=== PATIENT | female | born 1960 | race Caucasian/White ===

== ENCOUNTER 2018-05-06 14:08 | Emergency (ER) | payer BC ==
[2018-05-06] MEDS ORDERED: LIDOCAINE 1% INJ 10MG/ML (20 ML MDV) SQ ONE (14:31)
[2018-05-06] MEDS ORDERED: DIPH,PERTUS(ACELL)TETVAC-LF 0.5 ML VIAL IM ONE (14:31)
[2018-05-06 14:35] VITALS: BP 179/77; PULSE 85; RESP 16; TEMP 98
--- NOTE | 2018-05-06 14:40 | ED ---
General Adult HPI - General Stated complaint: fish hook in finger Time Seen by Provider: 05/06/18 14:29 Source: patient, RN notes reviewed Mode of arrival: ambulatory Limitations: no limitations - History of Present Illness Initial comments: This a 57-year-old female presented emergency Department chief complaint of fishhook in her hand. Patient states that she is fishing, it slipped into her finger. She is unsure when her last tetanus was. Patient states that it's in her left hand middle finger. Patient states that it is painful this time and has no other complaints. - Related Data Home Medications Medication Instructions Recorded Confirmed Ibuprofen [Advil] 200 mg PO Q8HR PRN 05/06/18 05/06/18 Previous Rx's Medication Instructions Recorded Cephalexin [Keflex] 500 mg PO Q8HR #21 cap 05/06/18 Allergies Allergy/AdvReac Type Severity Reaction Status Date / Time No Known Allergies Allergy Verified 05/06/18 14:37 Review of Systems ROS Statement: Those systems with pertinent positive or pertinent negative responses have been documented in the HPI. ROS Other: All systems not noted in ROS Statement are negative. Past Medical History Additional Past Medical History / Comment(s): hemorrhoids History of Any Multi-Drug Resistant Organisms: None Reported Additional Past Surgical History / Comment(s): tubal ligation Past Psychological History: No Psychological Hx Reported Smoking Status: Current every day smoker Past Alcohol Use History: None Reported Past Drug Use History: None Reported General Exam Limitations: no limitations General appearance: alert, in no apparent distress Respiratory exam: Present: normal lung sounds bilaterally. Absent: respiratory distress, wheezes, rales, rhonchi, stridor Cardiovascular Exam: Present: regular rate, normal rhythm, normal heart sounds. Absent: systolic murmur, diastolic murmur, rubs, gallop, clicks Extremities exam: Present: other (Left hand third digit there is a fishhook noted embedded in the middle phalanx region) Course Vital Signs 05/06/18 14:30 Temperature 98 F Pulse Rate 85 Respiratory 16 Rate Blood Pressure 179/77 O2 Sat by Pulse 96 Oximetry Procedures - Procedures Initial comment: Foreign body soft tissue removal: 3 mL of lidocaine without epinephrine were injected around the site of the hook in her left hand third digit. Patient had complete relief of the pain and hook was backed out using pliers with no complications. The wound was cleaned bacitracin applied. Medical Decision Making - Medical Decision Making 57-year-old female presented emergency department for fishhook in her left hand third digit. This was removed with no complications bacitracin applied. Patient was discharged at [facility] for 7 days. Wound care was discussed. X-ray was obtained. Tetanus was updated. Disposition Clinical Impression: Marlin injury to finger, Foreign body in soft tissue Disposition: HOME SELF-CARE Condition: Stable Instructions: Soft Tissue Foreign Body (ED) Additional Instructions: Please return to the Emergency Department if symptoms worsen or any other concerns. Prescriptions: Cephalexin [Keflex] 500 mg PO Q8HR #21 cap Is patient prescribed a controlled substance at d/c from ED?: No Referrals: None,Stated [Primary Care Provider] - 1-2 days Time of Disposition: 15:08
--- NOTE | 2018-05-06 15:08 | XR ---
EXAMINATION TYPE: XR finger LT DATE OF EXAM: 05/06/2018 COMPARISON: NONE HISTORY: Pain TECHNIQUE: Three views are submitted. FINDINGS: The osseous structures are intact. The joint spaces are preserved and there is no acute fracture or dislocation. There is a foreign body metallic clip overlying the distal phalanx third digit. IMPRESSION: 1. No definite acute fracture or dislocation if symptoms persist, follow-up study in 7 to 10 days wo uld be suggested. 2. Findings compatible with foreign body overlying the palmar surface soft tissues adjacent the dista l phalanx third digit.
== END 2018-05-06 15:21 | disposition home or self-care (01) ==
LOC: EC 14:08
DX: S60.453A Superficial foreign body of left middle finger, initial encounter (principal); F17.200 Nicotine dependence, unspecified, uncomplicated; Z23 Encounter for immunization; W45.8XXA Other foreign body or object entering through skin, initial encounter; Y93.89 Activity, other specified
CPT/HCPCS: 73140; 90715; 99283; 90471; J2001

== ENCOUNTER → 2019-07-28 | Outpatient (CLI) | payer BC ==
--- NOTE | 2019-07-28 14:57 | CT ---
EXAMINATION TYPE: CT chest w con DATE OF EXAM: 07/28/2019 COMPARISON: None HISTORY: Abnormal lung field, chest x-ray in office and patient was told she has a "bubble under medi astinal area" CT DLP: 531 mGycm, Automated exposure control for dose reduction was used. CONTRAST: Performed injected with 100 mL of Isovue 300. TECHNIQUE: Axial images were obtained at 5 mm thick sections. Reconstructed images are reviewed on [email or web address] computer in the coronal plane. FINDINGS: Portion of the thyroid visualized is normal. No suspicious lung nodules or focal infiltrates are present. No enlarged mediastinal or hilar adenopathy is evident. The ascending aorta diameter at the level o f the main pulmonary artery is 3.1 cm. The main pulmonary artery diameter at the bifurcation is 1.[address] sections are obtained through the upper abdomen. Abdomen is essentially unremarkable. No f ree air is evident. IMPRESSIONS: 1. Normal Chest CT.
== END | disposition home or self-care (01) ==
LOC: RADCTMAIN 09:13
PROVIDERS: ATTEND Internal Medicine Rheumatology
DX: R91.8 Other nonspecific abnormal finding of lung field (principal)
CPT/HCPCS: 71260; Q9967

== ENCOUNTER 2019-09-27 09:09 | Inpatient (IN) | payer BC ==
[2019-09-27] MEDS ORDERED: ASPIRIN 81 MG PO STA (09:20)
--- NOTE | 2019-09-27 09:42 | ED ---
General Adult HPI - General Chief complaint: Shortness of Breath Stated complaint: Dyspnea Time Seen by Provider: 09/27/19 09:17 Source: patient, RN notes reviewed Mode of arrival: ambulatory Limitations: no limitations - History of Present Illness Initial comments: Patient is a pleasant [age]-year-old female presenting to the emergency Department with shortness of breath. Patient has occasional mild cough with yellow sputum. Patient has felt short of breath somewhat yesterday more today. Patient is a smoker. No history of similar symptoms previously. Patient did have some burning in her chest. Patient states symptoms of burning the chest h ave resolved and dyspnea has significant improved following nebulizer treatment by EMS. Patient does have some nasal congestion as well. No fevers. No back pain. No leg pain or leg swelling. - Related Data Home Medications Medication Instructions Recorded Confirmed Fluticasone Nasal [place] [Flonase 1 spr EA NOSTRIL DAILY 09/27/19 09/27/19 Nasal [place]] Hydroxychloroquine Sulfate 200 mg PO BID 09/27/19 09/27/19 [Plaquenil] Pseudoephedrine HCl [Sudafed 240 mg PO DAILY PRN 09/27/19 09/27/19 24-Hour] Allergies Allergy/AdvReac Type Severity Reaction Status Date / Time No Known Allergies Allergy Verified 09/27/19 10:33 Review of Systems ROS Statement: Those systems with pertinent positive or pertinent negative responses have been documented in the HPI. ROS Other: All systems not noted in ROS Statement are negative. Constitutional: Denies: fever Eyes: Denies: eye pain ENT: Denies: ear pain Respiratory: Reports: cough, dyspnea Cardiovascular: Reports: chest pain Endocrine: Denies: fatigue Gastrointestinal: Denies: vomiting Genitourinary: Denies: dysuria Musculoskeletal: Denies: back pain Skin: Denies: rash Neurological: Denies: weakness Past Medical History Past Medical History: Rheumatoid Arthritis (RA) Additional Past Medical History / Comment(s): hemorrhoids History of Any Multi-Drug Resistant Organisms: None Reported Past Surgical History: Tonsillectomy Additional Past Surgical History / Comment(s): tubal ligation Past Psychological History: No Psychological Hx Reported Smoking Status: Current every day smoker Past Alcohol Use History: None Reported Past Drug Use History: None Reported General Exam Limitations: no limitations General appearance: alert, in no apparent distress Head exam: Present: normocephalic Eye exam: Present: normal appearance, PERRL ENT exam: Present: normal oropharynx Neck exam: Present: normal inspection Respiratory exam: Present: normal lung sounds bilaterally. Absent: chest wall tenderness Cardiovascular Exam: Present: regular rate, normal rhythm Expanded Peripheral pulses: 2+: Radial (R), Radial (L), Dorsalis Pedis (R), Dorsalis Pedis (L) GI/Abdominal exam: Present: soft. Absent: tenderness Extremities exam: Present: normal inspection. Absent: pedal edema, calf tender ness Neurological exam: Present: alert Psychiatric exam: Present: normal affect, normal mood Skin exam: Present: normal color Course Vital Signs 09/27/19 09:16 Temperature 97.9 F Pulse Rate 107 H Respiratory 18 Rate Blood Pressure 175/119 O2 Sat by Pulse 96 Oximetry EKG Findings - EKG Comments: EKG Findings:: Sinus tachycardia 102. IN 162. QRS 78. QT 362. QTC 471. Normal axis. Atrial enlargement. No acute ST change. Medical Decision Making - Medical Decision Making Patient reevaluated and updated. Case was discussed in detail with Dr. Polanco, who will admit coming Dr. tracey, who admits for Dr. Schmidt - Lab Data Result diagrams: 09/27/19 10:06 09/27/19 10:06 Lab Results 09/27/19 09/27/19 09/27/19 Range/Units 10:06 10:06 10:06 WBC 11.6 H (3.8-10.6) k/uL RBC 5.19 (3.80-5.40) m/uL Hgb 15.6 (11.4-16.0) gm/dL Hct 46.6 H (34.0-46.0) % MCV 89.8 (80.0-100.0) fL MCH 30.1 (25.0-35.0) pg MCHC 33.5 (31.0-37.0) g/dL RDW 12.6 (11.5-15.5) % Plt Count 201 (150-450) k/uL Neutrophils % 88 % Lymphocytes % 7 % Monocytes % 3 % Eosinophils % 2 % Basophils % 1 % Neutrophils # 10.2 H (1.3-7.7) k/uL Lymphocytes # 0.8 L (1.0-4.8) k/uL Monocytes # 0.3 (0-1.0) k/uL Eosinophils # 0.2 (0-0.7) k/uL Basophils # 0.1 (0-0.2) k/uL PT 10.0 (9.0-12.0) sec INR 0.9 (<1.2) APTT 22.9 (22.0-30.0) sec D-Dimer 1.52 H (<0.60) mg/L FEU Sodium 144 (137-145) mmol/L Potassium 3.2 L (3.5-5.1) mmol/L Chloride 105 (98-107) mmol/L Carbon Dioxide 28 (22-30) mmol/L Anion Gap 11 mmol/L BUN 13 (7-17) mg/dL Creatinine 0.84 (0.52-1.04) mg/dL Est GFR (CKD-EPI)AfAm 87 (>60 ml/min/1.73 sqM) Est GFR (CKD-EPI)NonAf 75 (>60 ml/min/1.73 sqM) Glucose 119 H (74-99) mg/dL Calcium 10.0 (8.4-10.2) mg/dL Magnesium 2.0 (1.6-2.3) mg/dL Total Bilirubin 0.6 (0.2-1.3) mg/dL AST 27 (14-36) U/L ALT 31 (9-52) U/L Alkaline Phosphatase 122 (38-126) U/L Troponin I (0.000-0.034) ng/mL Total Protein 8.1 (6.3-8.2) g/dL Albumin 4.4 (3.5-5.0) g/dL Amylase 807 H* (30-110) U/L Lipase 13511 H (23-300) U/L 09/27/19 Range/Units 10:06 WBC (3.8-10.6) k/uL RBC (3.80-5.40) m/uL Hgb (11.4-16.0) gm/dL Hct (34.0-46.0) % MCV (80.0-100.0) fL MCH (25.0-35.0) pg MCHC (31.0-37.0) g/dL RDW (11.5-15.5) % Plt Count (150-450) k/uL Neutrophils % % Lymphocytes % % Monocytes % % Eosinophils % % Basophils % % Neutrophils # (1.3-7.7) k/uL Lymphocytes # (1.0-4.8) k/uL Monocytes # (0-1.0) k/uL Eosinophils # (0-0.7) k/uL Basophils # (0-0.2) k/uL PT (9.0-12.0) sec INR (<1.2) APTT (22.0-30.0) sec D-Dimer (<0.60) mg/L FEU Sodium (137-145) mmol/L Potassium (3.5-5.1) mmol/L Chloride (98-107) mmol/L Carbon Dioxide (22-30) mmol/L Anion Gap mmol/L BUN (7-17) mg/dL Creatinine (0.52-1.04) mg/dL Est GFR (CKD-EPI)AfAm (>60 ml/min/1.73 sqM) Est GFR (CKD-EPI)NonAf (>60 ml/min/1.73 sqM) Glucose (74-99) mg/dL Calcium (8.4-10.2) mg/dL Magnesium (1.6-2.3) mg/dL Total Bilirubin (0.2-1.3) mg/dL AST (14-36) U/L ALT (9-52) U/L Alkaline Phosphatase (38-126) U/L Troponin I <0.012 (0.000-0.034) ng/mL Total Protein (6.3-8.2) g/dL Albumin (3.5-5.0) g/dL Amylase (30-110) U/L Lipase (23-300) U/L - Radiology Data Radiology results: report reviewed (The of the chest shows no acute process), image reviewed (X-ray shows no acute process) Disposition Clinical Impression: Pancreatitis Disposition: ADMITTED IP TO THIS HOSP Is patient prescribed a controlled substance at d/c from ED?: No Referrals: Miguel Schmidt MD [Primary Care Provider] - 1-2 days Decision Time: 12:28
--- NOTE | 2019-09-27 10:11 | XR ---
EXAMINATION TYPE: XR chest 2V DATE OF EXAM: 09/27/2019 COMPARISON: NONE HISTORY: Congestion, shortness of breath, chest pain TECHNIQUE: Frontal and lateral views of the chest are obtained. FINDINGS: There is no focal air space opacity, pleural effusion, or pneumothorax seen. The cardiac silhouette size is within normal limits. The osseous structures are intact. IMPRESSION: No acute cardiopulmonary process.
[2019-09-27 10:30] LABS: Basophils # (A) 0.1 k/uL (0-0.2); Basophils % (A) 1 %; Eosinophils # (A) 0.2 k/uL (0-0.7); Eosinophils % (A) 2 %; HCT 46.6 % (34.0-46.0); HGB 15.6 gm/dL (11.4-16.0); Lymphocytes # (A) 0.8 k/uL (1.0-4.8); Lymphocytes % (A) 7 %; MCH 30.1 pg (25.0-35.0); MCHC 33.5 g/dL (31.0-37.0); MCV 89.8 fL (80.0-100.0); Mean Platelet Volume 6.4; Monocytes # (A) 0.3 k/uL (0-1.0); Monocytes % (A) 3 %; Neutrophils # (A) 10.2 k/uL (1.3-7.7); Neutrophils % (A) 88 %; Platelet Count 201 k/uL (150-450); RBC 5.19 m/uL (3.80-5.40); RDW 12.6 % (11.5-15.5); WBC 11.6 k/uL (3.8-10.6)
[2019-09-27 10:38] LABS: Albumin 4.4 g/dL (3.5-5.0); Potassium 3.2 mmol/L (3.5-5.1); Total Bilirubin 0.6 mg/dL (0.2-1.3); Total Protein 8.1 g/dL (6.3-8.2)
[2019-09-27 10:43] LABS: INR 0.9 (<1.2); Partial Thromboplastin Time 22.9 sec (22.0-30.0)
[2019-09-27 10:47] LABS: D-Dimer 1.52 mg/L FEU (<0.60)
[2019-09-27] MEDS ORDERED: NALOXONE 0.4 MG/ML 1 ML VIAL IV PRN (12:28)
[2019-09-27] MEDS ORDERED: ONDANSETRON 4 MG/2 ML VIAL IVP PRN (12:28)
[2019-09-27] MEDS ORDERED: HYDROmorphone 1 MG/ML 1 ML SYRINGE IVP PRN (12:28)
[2019-09-27] MEDS ORDERED: SODIUM CHLORIDE 0.9% 1,000 ML IV STA (12:39)
[2019-09-27] MEDS: PANTOPRAZOLE 40 MG/10 ML VIAL IV SCH (13:56)
[2019-09-27] MEDS ORDERED: DOCUSATE 100 MG CAP PO PRN (15:06)
[2019-09-27] MEDS ORDERED: LOPERAMIDE 2 MG CAP PO PRN (15:06)
[2019-09-27] MEDS ORDERED: ACETAMINOPHEN TAB 325 MG TAB PO PRN (15:06)
--- NOTE | 2019-09-27 15:11 | US ---
EXAMINATION TYPE: US gallbladder DATE OF EXAM: 09/27/2019 COMPARISON: NONE CLINICAL HISTORY: Pancreatitis. Vomiting EXAM MEASUREMENTS: Liver Length: 13.6 cm Gallbladder Wall: .2 cm CBD: .5 cm Right Kidney: 10.4 x 3.5 x 4.1 cm Pancreas: Normal head and neck. Pancreatic duct is within normal limits measuring 2 to 3 mm. Tail is obscured by bowel gas. Liver: Within normal limits. Gallbladder: No cholelithiasis or wall thickening. 5 mm polyp noted. Evidence for sonographic Lara's sign: No CBD: Nondilated. Right Kidney: Within normal limits, no hydronephrosis. IMPRESSION: No evidence for cholelithiasis.
--- NOTE | 2019-09-27 15:16 | CT ---
EXAMINATION TYPE: CT angio chest DATE OF EXAM: 09/27/2019 2:28 PM COMPARISON: CT chest without contrast 07/28/2019 HISTORY: Elevated d-dimer CT DLP: 269.3 mGycm Automated exposure control for dose reduction was used. CONTRAST: CTA scan of the thorax is performed with IV Contrast, patient injected with 100 mL of Isovue 370, pul monary embolism protocol. MIP images are created and reviewed. FINDINGS: No pulmonary arterial filling defect. No pulmonary arterial enlargement. Normal course and caliber of the thoracic aorta. The heart is not enlarged. No pericardial effusion. No mediastinal adenopathy. No focal airspace consolidation. Lingular atelectasis noted. No osseous destructive lesion. Incidental L1 vertebral body hemangioma IMPRESSION: No pulmonary embolism.
[2019-09-27 15:17] VITALS: BMI 26.5
[2019-09-27] MEDS ORDERED: ALBUTEROL NEBULIZED 2.5 MG/3 ML INHALATION PRN (16:01)
--- NOTE | 2019-09-27 16:03 | P.HPIM ---
History of Present Illness H&P Date: 09/27/19 Chief Complaint: Pancreatitis, chest pain 59-year-old female with PMH of rheumatoid arthritis presents the ED for chest pain and nausea and vomiting. Patient states that she woke up this morning feeling short of breath. She was able to make it to work but soon experienced 4 episodes of nonbilious nonbloody vomiting. Along with the vomiting, patient reported chest pain, described as burning in nature. These constellation of symptoms prompted her to go to the ED. Patient reports that her breathing has gotten better since receiving a breathing treatment. Patient reports smoking 1- 1/2 packs of cigarettes daily since age of 13. Patient reports that she was diagnosed with rheumatoid arthritis in June. She is also reported rhinorrhea and nasal congestion that has been ongoing for the past few days. She denies any alcohol use. She denies any abdominal pain. She denies any changes in urination or bowel habits. She denies any headache, lower 70 edema, current nausea or vomiting, fever or chills, cough, chest pain, palpitations, dizziness, numbness/weakness/tingling of the extremities. In the ED, vital signs are stable except for elevated BP of 177/82 and tachycardia with heart rate of 103. CBC showed leukocytosis of 11.6. D-dimer was elevated at 1.52. CMP showed potassium of 3.2, glucose of 119. Troponin was less than 0.012, EKG showing sinus tachycardia and biatrial enlargement. Amylase was elevated at 807. Lipase was elevated at 14,302. D-dimer was elevated, CTA chest ruled out PE. Gallbladder ultrasound was negative for cholelithiasis. Patient is admitted for pancreatitis and chest pain, rule out acute coronary syndrome. Past Medical History Past Medical History: Rheumatoid Arthritis (RA) Additional Past Medical History / Comment(s): hemorrhoids History of Any Multi-Drug Resistant Organisms: None Reported Past Surgical History: Tonsillectomy Additional Past Surgical History / Comment(s): tubal ligation Past Psychological History: No Psychological Hx Reported Smoking Status: Current every day smoker Past Alcohol Use History: None Reported Past Drug Use History: None Reported - Past Family History Father Family Medical History: No Reported History Medications and Allergies Home Medications Medication Instructions Recorded Confirmed Type Fluticasone Nasal [place] [Flonase 1 spr EA NOSTRIL DAILY 09/27/19 09/27/19 History Nasal [place]] Hydroxychloroquine Sulfate 200 mg PO BID 09/27/19 09/27/19 History [Plaquenil] Pseudoephedrine HCl [Sudafed 240 mg PO DAILY PRN 09/27/19 09/27/19 History 24-Hour] Allergies Allergy/AdvReac Type Severity Reaction Status Date / Time No Known Allergies Allergy Verified 09/27/19 10:33 Physical Exam Vitals: Vital Signs Temp Pulse Resp BP Pulse Ox 09/27/19 13:56 72 18 163/82 98 09/27/19 12:24 62 18 177/82 09/27/19 09:16 97.9 F 107 H 18 175/119 96 Intake and Output 09/27/19 09/27/19 09/27/19 06:59 14:59 22:59 Other: # Voids 0 Weight 67.9 kg General: [non toxic], [no distress], [appears at stated age] Derm: [warm], [dry] Head: [atraumatic], [normocephalic], [symmetric] Eyes: [EOMI], [no lid lag], [anicteric sclera] Mouth: [no lip lesion], [mucus membranes moist] Cardiovascular: [S1S2 reg], [tachycardia], [positive DP pulse bilateral], Lungs: [Decreased breath sounds bilateral], [no rhonchi, no rales] , [no accessory muscle use] Abdominal: [soft], [ nontender to palpation], [no guarding], [no appreciable organomegaly] Ext: [no gross muscle atrophy], [no edema], [no contractures] Neuro: [ CN II-XI grossly intact], [no focal neuro deficits] Psych: [Alert], [oriented], [appropriate affect] Results CBC & Chem 7: 09/27/19 10:06 09/27/19 10:06 Labs: Abnormal Lab Results - Last 24 Hours (Table) 09/27/19 09/27/19 09/27/19 Range/Units 10:06 10:06 10:06 WBC 11.6 H (3.8-10.6) k/uL Hct 46.6 H (34.0-46.0) % Neutrophils # 10.2 H (1.3-7.7) k/uL Lymphocytes # 0.8 L (1.0-4.8) k/uL D-Dimer 1.52 H (<0.60) mg/L FEU Potassium 3.2 L (3.5-5.1) mmol/L Glucose 119 H (74-99) mg/dL Amylase 807 H* (30-110) U/L Lipase 29995 H (23-300) U/L Thrombosis Risk Factor Assmnt - Choose All That Apply Other Risk Factors: Yes Each Risk Factor Represents 2 Points: Age 61-74 years Thrombosis Risk Factor Assessment Total Risk Factor Score: 2 Thrombosis Risk Factor Assessment Level: Low Risk Assessment and Plan Assessment: Assessment and plan Acute pancreatitis Chest pain with elevated d-dimer Shortness of breath Leukocytosis likely due to viral URI Hypokalemia Rheumatoid arthritis Amylase 807, lipase 14,302. LFTs are within normal limits. Unknown cause. Plans: Clear liquid diet and advance as tolerated. Continue normal saline at 100 mL per hour. Tylenol for Dilaudid as needed for pain. Zofran as needed for nausea or vomiting. Start Protonix 40 mg IV daily. Follow gallbladder ultrasound. Repeat lipase tomorrow morning. Follow GI consultation. Troponin less than 0.012 with EKG showing biatrial enlargement and sinus tachycardia. Elevated d-dimer, CTA chest ruled out PE. Chest x-ray negative. Likely related to pancreatitis. Plans: Trend troponin/EKG to rule out ACS. Aspirin given in the ED. Telemetry monitoring. Possibly COPD due to smoking history. Plans: Albuterol neb as needed for shortness of breath and wheezing. Leukocytosis of 11.6. Patient has signs of URI. Chest x-ray negative. Plans: We'll repeat CBC in the morning. Potassium 3.2. Likely due to vomiting. Plans: Replace via protocol. Plans: Continue hydroxychloroquine. DVT prophylaxis: [SCD] Discussed with: [Patient] Anticipated discharge: [1-2 days] Anticipated discharge place: [Home] A total of [45] minutes was spent on the care of this complex patient more than 50% of the time was spent in counseling and care coordination. Patient names her son Ravi decision-maker in the case that she can't make decisions for herself. Patient reiterates wanting to remain no code.
[2019-09-27] MEDS: HYDROXYCHLOROQUINE SULFATE 200 MG TAB PO SCH (20:07)
[2019-09-28] MEDS: HYDROXYCHLOROQUINE SULFATE 200 MG TAB PO SCH (08:28)
[2019-09-28] MEDS: PANTOPRAZOLE 40 MG/10 ML VIAL IV SCH (08:30)
[2019-09-28 08:52] LABS: HCT 39.3 % (34.0-46.0); HGB 12.8 gm/dL (11.4-16.0); MCH 29.4 pg (25.0-35.0); MCHC 32.6 g/dL (31.0-37.0); MCV 90.2 fL (80.0-100.0); Mean Platelet Volume 7.1; Platelet Count 230 k/uL (150-450); RBC 4.35 m/uL (3.80-5.40); RDW 12.8 % (11.5-15.5); WBC 17.7 k/uL (3.8-10.6)
[2019-09-28 09:08] LABS: ALT 25 U/L (9-52); AST 23 U/L (14-36); African American GFR (CKD) >90 (>60 ml/min/1.73 sqM); Albumin 3.6 g/dL (3.5-5.0); Alkaline Phosphatase 85 U/L (38-126); Anion Gap 7 mmol/L; Blood Urea Nitrogen 13 mg/dL (7-17); Calcium 9.3 mg/dL (8.4-10.2); Carbon Dioxide 24 mmol/L (22-30); Chloride 110 mmol/L (98-107); Cholesterol 178 mg/dL (<200); Glucose 82 mg/dL (74-99); HDL Cholesterol 65 mg/dL (40-60); LDL Cholesterol,Calculated 99 mg/dL (0-99); Non-African American GFR(CKD) >90 (>60 ml/min/1.73 sqM); Potassium 3.9 mmol/L (3.5-5.1); Sodium 141 mmol/L (137-145); Total Bilirubin 0.4 mg/dL (0.2-1.3); Total Protein 6.6 g/dL (6.3-8.2); Triglycerides 70 mg/dL (<150)
--- NOTE | 2019-09-28 09:27 | P.DS ---
Providers Date of admission: 09/27/19 12:28 Expected date of discharge: 09/28/19 Attending physician: Margaux Gonzales MD Consults: 09/27/19 12:29 Consult Physician Urgent Consulting Provider: Anayeli Buitrago Consult Reason/Comments: pancreatitis Do you want consulting provider notified?: Yes Primary care physician: [facility] Course: 59-year-old female with PMH of rheumatoid arthritis presents the ED for chest pain and nausea and vomiting. Patient states that she woke up this morning feeling short of breath. She was able to make it to work but soon experienced 4 episodes of nonbilious nonbloody vomiting. Along with the vomiting, patient reported chest pain, described as burning in nature. These constellation of symptoms prompted her to go to the ED. Patient reports that her breathing has gotten better since receiving a breathing treatment. Patient reports smoking 1- 1/2 packs of cigarettes daily since age of 13. Patient reports that she was di agnosed with rheumatoid arthritis in June. She is also reported rhinorrhea and nasal congestion that has been ongoing for the past few days. She denies any alcohol use. She denies any abdominal pain. She denies any changes in urination or bowel habits. She denies any headache, lower 70 edema, current nausea or vomiting, fever or chills, cough, chest pain, palpitations, dizziness, numbness/weakness/tingling of the extremities. In the ED, vital signs are stable except for elevated BP of 177/82 and tachycardia with heart rate of 103. CBC showed leukocytosis of 11.6. D-dimer was elevated at 1.52. CMP showed potassium of 3.2, glucose of 119. Troponin was less than 0.012, EKG showing sinus tachycardia and biatrial enlargement. Amylase was elevated at 807. Lipase was elevated at 14,302. D-dimer was elevated, CTA chest ruled out PE. Gallbladder ultrasound was negative for cholelithiasis. Patient is admitted for pancreatitis and chest pain, rule out acute coronary syndrome. Her symptoms were thought to be secondary to pancreatitis. Her LFT was within normal limits. The costophrenic pancreatitis was unknown. She was started on clear liquid diet and advanced as tolerated. She was given IV hydration. Pain was controlled with Tylenol and Dilaudid. She was given Zofran for nausea or vomiting. She was started on Protonix. Gallbladder ultrasound was performed and was negative. GI consult was consulted and followed the patient throughout her hospitalization. With regard to her chest pain which is likely related to her episode of vomiting plan was to rule out ACS. Troponin was less than 0.0123 with EKG showing biatrial enlargement and sinus tachycardia. PE was ruled out via CTA chest. Her shortness of breath was likely due to her long standing history of smoking. She probably has underlying COPD. She was given albuterol neb as needed for shortness of breath and wheezing. She was to be discharged home with an albuterol inhaler. Patient had leukocytosis of 11.6 which trended up to 17.7. This was thought to be secondary to viral URI as she had some nasal congestion. Chest x-ray was negative. Patient was seen and examined prior to discharge. No acute events overnight. Patient denies any abdominal pain. No nausea or vomiting. No fever or chills. She denies any chest pain, shortness of breath or palpitations. General: [non toxic], [no distress], [appears at stated age] Derm: [warm], [dry] Head: [atraumatic], [normocephalic], [symmetric] Eyes: [EOMI], [no lid lag], [anicteric sclera] Mouth: [no lip lesion], [mucus membranes moist] Cardiovascular: [S1S2 reg], [tachycardia], [positive DP pulse bilateral], Lungs: [Decreased breath sounds bilateral], [no rhonchi, no rales] , [no accessory muscle use] Abdominal: [soft], [ nontender to palpation], [no guarding], [no appreciable organomegaly] Ext: [no gross muscle atrophy], [no edema], [no contractures] Neuro: [no focal neuro deficits] Psych: [Alert], [oriented], [appropriate affect] Assessment and plan Acute pancreatitis Chest pain with elevated d-dimer Shortness of breath Leukocytosis likely due to viral URI Rheumatoid arthritis Amylase 807, lipase 14,302. LFTs are within normal limits. Unknown cause. Gallbladder ultrasound negative. Plans: Clear liquid diet and advance as tolerated. Continue normal saline at 100 mL per hour. Tylenol for Dilaudid as needed for pain. Zofran as needed for nausea or vomiting. Start Protonix 40 mg IV daily. Repeat lipase tomorrow morning. Follow GI consultation. Troponin less than 0.012 3 with EKG showing biatrial enlargement and sinus tachycardia. Elevated d-dimer, CTA chest ruled out PE. Chest x-ray negative. Likely related to pancreatitis. Plans: ACS ruled out. Aspirin given in the ED. Possibly COPD due to smoking history. Plans: Albuterol neb as needed for shortness of breath and wheezing. Will discharge home with albuterol inhaler. Leukocytosis of 11.6-17.7. Patient has signs of URI. Also reactive due to pancreatitis. Chest x-ray negative. Plans: Repeat CBC in 3 days. Plans: Continue hydroxychloroquine. [Waiting on repeat lipase. Possible DC home today if cleared by GI and lipase downtrending. Patient is asymptomatic. Follow-up PCP in 3 days. Follow-up GI within 1 week. Repeat CBC to be followed up with PCP.] Pertinent Studies: Chest x-ray, gallbladder ultrasound, chest CTA Patient Condition at Discharge: Stable Plan - Discharge Summary New Discharge Prescriptions: New Pantoprazole Sodium [Protonix] 40 mg PO DAILY #30 tablet. Albuterol Inhaler [Ventolin Hfa Inhaler] 1 - 2 puff INHALATION RT-Q6H PRN #1 inhaler PRN Reason: Shortness Of Breath Continue Hydroxychloroquine Sulfate [Plaquenil] 200 mg PO BID Fluticasone Nasal Anna [Flonase Nasal Anna] 1 spr EA NOSTRIL DAILY Pseudoephedrine HCl [Sudafed 24-Hour] 240 mg PO DAILY PRN PRN Reason: Cold Symptoms Discharge Medication List Fluticasone Nasal Anna [Flonase Nasal Anna] 1 spr EA NOSTRIL DAILY 09/27/19 [History] Hydroxychloroquine Sulfate [Plaquenil] 200 mg PO BID 09/27/19 [History] Pseudoephedrine HCl [Sudafed 24-Hour] 240 mg PO DAILY PRN 09/27/19 [History] Albuterol Inhaler [Ventolin Hfa Inhaler] 1 - 2 puff INHALATION RT-Q6H PRN #1 inhaler 09/28/19 [Rx] Pantoprazole Sodium [Protonix] 40 mg PO DAILY #30 tablet. 09/28/19 [Rx] Follow up Appointment(s)/Referral(s): Miguel Schmidt MD [Primary Care Provider] - 1-2 days Anayeli Buitrago MD [STAFF PHYSICIAN] - 1 Week Ambulatory/Diagnostic Orders: Lipase [LAB.AMB] Time Frame: 3 Days, Location: None Selected Activity/Diet/Wound Care/Special Instructions: Diet: Low-fat Follow-up PCP within 3 days. Follow-up care within 1 week. Repeat lipase within 3 days. Follow-up results with PCP. Discharge Disposition: HOME SELF-CARE
[2019-09-28 12:04] VITALS: PULSE 90; RESP 17; TEMP 97.8
[2019-09-28] MEDS ORDERED: HYDROCHLOROTHIAZIDE 25 MG TAB PO SCH (14:30)
[2019-09-28] MEDS ORDERED: amLODIPine 10 MG TAB PO SCH (14:30)
[2019-09-28 15:37] VITALS: BP 164/99
--- NOTE | 2019-09-28 16:43 | CONS ---
CONSULTATION DATE OF SERVICE: 09/28/2019 The patient is a 59-year-old pleasant white female admitted to the hospital with severe chest pain associated with nausea and vomiting that started yesterday evening. She initially for the last 2 days has been having some sinus issues and was not feeling well. Yesterday she went to work and she had several episodes of nausea and vomiting and some chest pain, came into the emergency room and she was noted to have elevated amylase and lipase consistent with acute pancreatitis. Patient never had any attacks of pancreatitis in the past. She denies any alcohol use. She did have ultrasound of the gallbladder done that showed no evidence of gallstones. She has no family history of pancreatitis. She was diagnosed with rheumatoid arthritis and was started on Plaquenil about 2 months ago. This morning, she is feeling much better. No further episodes of chest pain. No further episodes of nausea, vomiting requesting for a diet. PAST MEDICAL HISTORY: Rheumatoid arthritis. PAST SURGICAL HISTORY: Tubal ligation and tonsillectomy. MEDICATIONS: At home Plaquenil, Flonase, Sudafed. SOCIAL HISTORY: No history of smoking. No alcohol use. ALLERGIES: None. FAMILY HISTORY: Unremarkable. REVIEW OF SYSTEMS: CARDIOPULMONARY: No chest pain, shortness of breath. no dysuria or hematuria. MUSCULOSKELETAL: Unremarkable. SKIN unremarkable. ENDOCRINE unremarkable. PSYCHIATRIC unremarkable. NEUROLOGY unremarkable. ENT/vision unremarkable. CONSTITUTIONAL: No recent weight loss. No fevers, chills or night sweats. PHYSICAL EXAMINATION: She appears comfortable. No apparent distress. Vital signs stable. Blood pressure is 132/77, pulse rate 101, temperature 97.6. HEENT examination unremarkable. Conjunctivae pink. Sclerae anicteric. Oral cavity no lesions. NECK: No JVD or lymph node enlargement. CHEST: Clear to auscultation. HEART: Regular rate and rhythm. ABDOMEN: Soft. Mild tenderness in the epigastric area. Bowel sounds are positive. No organomegaly. EXTREMITIES: No pedal edema. SKIN: No rashes. NEUROLOGIC: Alert and oriented x3. No focal deficits. LABS: From yesterday WBC 11.6, hemoglobin 15.6, platelets normal. Basic metabolic panel is within normal limits. Amylase was 807, lipase was 14,302. This morning surprisingly the lipase is 164. IMPRESSION: This is a patient who presents to hospital with some chest pain, nausea, vomiting that started yesterday and was noted to have elevated amylase and lipase consistent with acute pancreatitis. No history of alcohol abuse. Ultrasound of the abdomen did not show any evidence of gallstones. Clinically, she has significant improvement and in fact, this morning her symptoms have almost completely resolved and surprisingly her lipase is also normal at 164. RECOMMENDATIONS: 1. Start on clear liquid diet and advance as tolerated. 2. Antiemetics if needed. 3. We will obtain fasting serum triglycerides and serum TAMMI. 4. If her symptoms improve, she can be discharged home today and tomorrow with outpatient followup in 2 weeks. Thank you for this consultation. MMODL / IJN: [id number] /
[2019-09-28] MEDS ORDERED: CARVEDILOL 6.25 MG TAB PO SCH (17:30)
[2019-09-29] MEDS ORDERED: PANTOPRAZOLE 40 MG TABLET PO SCH (07:30)
== END 2019-09-28 17:07 | disposition home or self-care (01) | DRG 440 ==
LOC: EC 09:09 → 3NMEDONC 12:28
PROVIDERS: ADMIT Family Medicine; ATTEND Family Medicine
DX: K85.90 Acute pancreatitis without necrosis or infection, unspecified (principal); E87.6 Hypokalemia; J06.9 Acute upper respiratory infection, unspecified; R07.9 Chest pain, unspecified; M06.9 Rheumatoid arthritis, unspecified; K64.9 Unspecified hemorrhoids; J44.9 Chronic obstructive pulmonary disease, unspecified; F17.218 Nicotine dependence, cigarettes, with other nicotine-induced disorders; Z79.899 Other long term (current) drug therapy; Z98.890 Other specified postprocedural states; Z98.51 Tubal ligation status
CPT/HCPCS: 36415; 71046; 71275; 76705; 80053; 80061; 82150; 83690; 83735; 84484; 85025; 85027; 85379; 85610; 85730; 93005; 94640; 94760; 96361; 96374; 99285

== ENCOUNTER 2020-06-06 12:32 | Inpatient (IN) | payer BC ==
[2020-06-06] MEDS ORDERED: IPRATROPIUM-ALBUTEROL 3 ML NEB INHALATION STA ×2 (12:56→14:38)
[2020-06-06] MEDS ORDERED: methylPREDNISolone SOD SUCCI 125 MG/2 ML VIAL IV STA (12:56)
--- NOTE | 2020-06-06 13:02 | ED ---
SOB HPI - General Chief Complaint: Shortness of Breath Stated Complaint: shortness of breath Time Seen by Provider: 06/06/20 12:40 Source: patient, RN notes reviewed Mode of arrival: wheelchair Limitations: no limitations - History of Present Illness Initial Comments: This is a 59-year-old female with a history of COPD who is still a smoker who presents with complaints of shortness of breath cough with yellow phlegm some rhinorrhea but no overt fevers chills sweats no nausea no vomiting. No loss of smell or taste. He states this started basically yesterday. She also states she's been sneezing a lot. She does demonstrate nasal congestion she states. She does have inhalers at home the apparently were not helping. She was seen at [facility] prior to coming here chest x-ray from that facility was negative for evidence of pneumonia. MD Complaint: shortness of breath, cough - Related Data Home Medications Medication Instructions Recorded Confirmed Hydroxychloroquine Sulfate 200 mg PO BID 09/27/19 06/06/20 [Plaquenil] Albuterol Inhaler (Mhu) [Ventolin 2 puff INHALATION RT-QID PRN 06/06/20 06/06/20 Hfa Inhaler (Mhu)] Allergies Allergy/AdvReac Type Severity Reaction Status Date / Time No Known Allergies Allergy Verified 06/06/20 14:09 Review of Systems ROS Statement: Those systems with pertinent positive or pertinent negative responses have been documented in the HPI. ROS Other: All systems not noted in ROS Statement are negative. Past Medical History Past Medical History: Rheumatoid Arthritis (RA) Additional Past Medical History / Comment(s): hemorrhoids History of Any Multi-Drug Resistant Organisms: None Reported Past Surgical History: Tonsillectomy Additional Past Surgical History / Comment(s): tubal ligation Past Psychological History: No Psychological Hx Reported Smoking Status: Current every day smoker Past Alcohol Use History: None Reported Past Drug Use History: None Reported - Past Family History Father Family Medical History: No Reported History General Exam - General Exam Comments Initial Comments: This is a well-developed well-nourished awake alert oriented 3 female Limitations: no limitations General appearance: alert, in no apparent distress Head exam: Present: atraumatic, normocephalic, normal inspection Eye exam: Present: normal appearance, PERRL, EOMI. Absent: scleral icterus, conjunctival injection, periorbital swelling ENT exam: Present: mucous membranes dry Neck exam: Present: normal inspection, full ROM. Absent: tenderness, meningismus, lymphadenopathy Respiratory exam: Present: wheezes, decreased breath sounds. Absent: respiratory distress, rales, rhonchi, stridor Cardiovascular Exam: Present: normal rhythm, tachycardia, normal heart sounds. Absent: systolic murmur, diastolic murmur, rubs, gallop, clicks GI/Abdominal exam: Present: soft, normal bowel sounds. Absent: distended, tenderness, guarding, rebound, rigid Extremities exam: Present: normal inspection, full ROM, normal capillary refill. Absent: tenderness, pedal edema, joint swelling, calf tenderness Back exam: Present: normal inspection Neurological exam: Present: alert, oriented X3, CN II-XII intact Psychiatric exam: Present: normal affect, normal mood Skin exam: Present: warm, dry, intact, normal color. Absent: rash Course Vital Signs 06/06/20 06/06/20 06/06/20 12:35 13:15 13:23 Temperature 98.7 F Pulse Rate 111 H 98 107 H Respiratory 22 Rate Blood Pressure 141/76 O2 Sat by Pulse 94 L Oximetry 06/06/20 06/06/20 13:31 14:00 Temperature Pulse Rate 102 H 92 Respiratory 24 24 Rate Blood Pressure 137/81 137/81 O2 Sat by Pulse 95 95 Oximetry - Reevaluation(s) Reevaluation #1: 06/06/20 14:10 Reevaluation after initial treatment the patient states she's feeling much impro junior however her lung sounds are still markedly diminished with wheezing bilaterally. Reevaluation #2: 06/06/20 14:38 Reevaluation patient she still is dyspneic with markedly diminished breath sounds and wheezing. Medical Decision Making - Medical Decision Making Patient is feeling initial treatment and will be admitted I discuss this with her also Dr. Chau. Some testing is still pending. - Lab Data Result diagrams: 06/06/20 13:08 06/06/20 13:08 Lab Results 06/06/20 06/06/20 06/06/20 Range/Units 13:08 13:08 13:08 WBC 14.7 H (3.8-10.6) k/uL RBC 5.50 H (3.80-5.40) m/uL Hgb 16.0 (11.4-16.0) gm/dL Hct 49.2 H (34.0-46.0) % MCV 89.5 (80.0-100.0) fL MCH 29.1 (25.0-35.0) pg MCHC 32.6 (31.0-37.0) g/dL RDW 12.6 (11.5-15.5) % Plt Count 160 (150-450) k/uL Neutrophils % 87 % Lymphocytes % 5 % Monocytes % 4 % Eosinophils % 2 % Basophils % 1 % Neutrophils # 12.8 H (1.3-7.7) k/uL Lymphocytes # 0.8 L (1.0-4.8) k/uL Monocytes # 0.6 (0-1.0) k/uL Eosinophils # 0.4 (0-0.7) k/uL Basophils # 0.1 (0-0.2) k/uL PT 10.1 (9.0-12.0) sec INR 1.0 (<1.2) APTT 23.9 (22.0-30.0) sec D-Dimer (<0.60) mg/L FEU Sodium 137 (137-145) mmol/L Potassium 4.5 (3.5-5.1) mmol/L Chloride 103 (98-107) mmol/L Carbon Dioxide 23 (22-30) mmol/L Anion Gap 11 mmol/L BUN 13 (7-17) mg/dL Creatinine 0.95 (0.52-1.04) mg/dL Est GFR (CKD-EPI)AfAm 75 (>60 ml/min/1.73 sqM) Est GFR (CKD-EPI)NonAf 65 (>60 ml/min/1.73 sqM) Glucose 96 (74-99) mg/dL Plasma Lactic Acid Uzair (0.7-2.0) mmol/L Calcium 10.2 (8.4-10.2) mg/dL Magnesium 2.3 (1.6-2.3) mg/dL Total Bilirubin 1.0 (0.2-1.3) mg/dL AST 33 (14-36) U/L ALT 18 (4-34) U/L Alkaline Phosphatase 110 (38-126) U/L Lactate Dehydrogenase 912 H (313-618) U/L Creatine Kinase 57 (30-135) U/L Troponin I (0.000-0.034) ng/mL C-Reactive Protein 70.6 H (<10.0) mg/L NT-Pro-B Natriuret Pep pg/mL Total Protein 8.2 (6.3-8.2) g/dL Albumin 4.9 (3.5-5.0) g/dL 06/06/20 06/06/20 06/06/20 Range/Units 13:08 13:08 13:08 WBC (3.8-10.6) k/uL RBC (3.80-5.40) m/uL Hgb (11.4-16.0) gm/dL Hct (34.0-46.0) % MCV (80.0-100.0) fL MCH (25.0-35.0) pg MCHC (31.0-37.0) g/dL RDW (11.5-15.5) % Plt Count (150-450) k/uL Neutrophils % % Lymphocytes % % Monocytes % % Eosinophils % % Basophils % % Neutrophils # (1.3-7.7) k/uL Lymphocytes # (1.0-4.8) k/uL Monocytes # (0-1.0) k/uL Eosinophils # (0-0.7) k/uL Basophils # (0-0.2) k/uL PT (9.0-12.0) sec INR (<1.2) APTT (22.0-30.0) sec D-Dimer (<0.60) mg/L FEU Sodium (137-145) mmol/L Potassium (3.5-5.1) mmol/L Chloride (98-107) mmol/L Carbon Dioxide (22-30) mmol/L Anion Gap mmol/L BUN (7-17) mg/dL Creatinine (0.52-1.04) mg/dL Est GFR (CKD-EPI)AfAm (>60 ml/min/1.73 sqM) Est GFR (CKD-EPI)NonAf (>60 ml/min/1.73 sqM) Glucose (74-99) mg/dL Plasma Lactic Acid Uzair 1.3 (0.7-2.0) mmol/L Calcium (8.4-10.2) mg/dL Magnesium (1.6-2.3) mg/dL Total Bilirubin (0.2-1.3) mg/dL AST (14-36) U/L ALT (4-34) U/L Alkaline Phosphatase (38-126) U/L Lactate Dehydrogenase (313-618) U/L Creatine Kinase (30-135) U/L Troponin I <0.012 (0.000-0.034) ng/mL C-Reactive Protein (<10.0) mg/L NT-Pro-B Natriuret Pep 174 pg/mL Total Protein (6.3-8.2) g/dL Albumin (3.5-5.0) g/dL 06/06/20 Range/Units 13:08 WBC (3.8-10.6) k/uL RBC (3.80-5.40) m/uL Hgb (11.4-16.0) gm/dL Hct (34.0-46.0) % MCV (80.0-100.0) fL MCH (25.0-35.0) pg MCHC (31.0-37.0) g/dL RDW (11.5-15.5) % Plt Count (150-450) k/uL Neutrophils % % Lymphocytes % % Monocytes % % Eosinophils % % Basophils % % Neutrophils # (1.3-7.7) k/uL Lymphocytes # (1.0-4.8) k/uL Monocytes # (0-1.0) k/uL Eosinophils # (0-0.7) k/uL Basophils # (0-0.2) k/uL PT (9.0-12.0) sec INR (<1.2) APTT (22.0-30.0) sec D-Dimer 0.51 (<0.60) mg/L FEU Sodium (137-145) mmol/L Potassium (3.5-5.1) mmol/L Chloride (98-107) mmol/L Carbon Dioxide (22-30) mmol/L Anion Gap mmol/L BUN (7-17) mg/dL Creatinine (0.52-1.04) mg/dL Est GFR (CKD-EPI)AfAm (>60 ml/min/1.73 sqM) Est GFR (CKD-EPI)NonAf (>60 ml/min/1.73 sqM) Glucose (74-99) mg/dL Plasma Lactic Acid Uzair (0.7-2.0) mmol/L Calcium (8.4-10.2) mg/dL Magnesium (1.6-2.3) mg/dL Total Bilirubin (0.2-1.3) mg/dL AST (14-36) U/L ALT (4-34) U/L Alkaline Phosphatase (38-126) U/L Lactate Dehydrogenase (313-618) U/L Creatine Kinase (30-135) U/L Troponin I (0.000-0.034) ng/mL C-Reactive Protein (<10.0) mg/L NT-Pro-B Natriuret Pep pg/mL Total Protein (6.3-8.2) g/dL Albumin (3.5-5.0) g/dL - EKG Data -: EKG Interpreted by Me EKG shows normal: sinus rhythm EKG Comments: Sex tachycardia of 104 NE interval 162 QRS 78 QT since QTC 320/423 by atrial enlargement pulmonary disease pattern nonspecific inferior configuration - Radiology Data Radiology results: image reviewed (I did review the imaging and report sent with patient showing no evidence of acute infiltrates.) Disposition Clinical Impression: Acute exacerbation of chronic obstructive pulmonary disease, Tracheobronchitis, Acute respiratory distress syndrome in adult Disposition: ADMITTED IP TO THIS HOSP Condition: Fair Referrals: Charlie Ruiz MD [Primary Care Provider] - 1-2 days
[2020-06-06] MEDS ORDERED: SODIUM CHLORIDE 0.9% 1,000 ML IV STA (13:03)
[2020-06-06] MEDS ORDERED: SODIUM CHLORIDE 0.9% 500 ML 500 ML IV STA (13:03)
[2020-06-06 13:35] LABS: Basophils # (A) 0.1 k/uL (0-0.2); Basophils % (A) 1 %; Eosinophils # (A) 0.4 k/uL (0-0.7); Eosinophils % (A) 2 %; HCT 49.2 % (34.0-46.0); Lymphocytes # (A) 0.8 k/uL (1.0-4.8); Lymphocytes % (A) 5 %; MCH 29.1 pg (25.0-35.0); MCHC 32.6 g/dL (31.0-37.0); MCV 89.5 fL (80.0-100.0); Monocytes # (A) 0.6 k/uL (0-1.0); Monocytes % (A) 4 %; Neutrophils # (A) 12.8 k/uL (1.3-7.7); Neutrophils % (A) 87 %; Platelet Count 160 k/uL (150-450); RDW 12.6 % (11.5-15.5); WBC 14.7 k/uL (3.8-10.6)
[2020-06-06 13:46] LABS: Partial Thromboplastin Time 23.9 sec (22.0-30.0); Prothrombin Time 10.1 sec (9.0-12.0)
[2020-06-06 13:52] LABS: Albumin 4.9 g/dL (3.5-5.0); C Reactive Protein 70.6 mg/L (<10.0); Calcium 10.2 mg/dL (8.4-10.2); Magnesium 2.3 mg/dL (1.6-2.3); Total Protein 8.2 g/dL (6.3-8.2)
[2020-06-06 13:53] LABS: Potassium 4.5 mmol/L (3.5-5.1)
[2020-06-06] MEDS ORDERED: AZITHROMYCIN 500 MG in SODIUM CHLORIDE 0.9% 250 ML IVPB STA (14:47)
[2020-06-06] MEDS ORDERED: NICOTINE 21MG/24HR PATCH TRANSDERM STA (14:58)
[2020-06-06 16:33] LABS: Glucose,Whole Blood 161 mg/dL (75-99)
[2020-06-06] MEDS ORDERED: methylPREDNISolone SOD SUCCI 125 MG/2 ML VIAL IV SCH (18:00)
[2020-06-06] MEDS ORDERED: ALBUTEROL HFA INHALER INHALATION SCH (20:00)
[2020-06-06] MEDS ORDERED: IPRATROPIUM-ALBUTEROL 3 ML NEB INHALATION SCH (20:00)
--- NOTE | 2020-06-06 21:29 | P.HPIM ---
History of Present Illness H&P Date: 06/06/20 Chief Complaint: Short of breath History of presenting complaint: This is a 59-year-old patient of Dr. Ruiz. Chronic stable medical conditions include rheumatoid arthritis, hypertension, recently admitted to the hospital for pancreatitis. Patient's long-standing smoker. 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 Denies any fever and chills. Kierra etite is okay. No change in bowel movement. Pain associated. No change in taste or smell. Feeling better after getting bronchodilator in the ER. In the post discharge Review of systems: GEN.: Tired EYES: None HEENT: None NECK: None RESPIRATORY: As above] CARDIOVASCULAR: None GASTROINTESTINAL: None GENITOURINARY: None MUSCULOSKELETAL: Joint pains LYMPHATICS: None HEMATOLOGICAL: None PSYCHIATRY: None NEUROLOGICAL: None Past medical history to include: Number of arthritis, hemorrhoids, pancreatitis, COPD. Positive admission diagnoses with hypertension. Upon follow-up found to have normal blood pressure. Hence antihypertensive discontinued by PCP. Social history: . Works at [employer]. Smokes a pack a day for close to 45 years. Physical examination: VITAL SIGNS: 97.7, 91, 16, 151/89, 94% on 2 L GENERAL: BMI 25.6, sitting a bit, slightly tired. EYES: Pupils equal. Conjunctiva normal. HEENT: External appearance of nose and ears normal, oral cavity grossly normal. NECK: JVD not raised; masses not palpable. HEART: First and second heart sounds are normal; no edema. LUNGS: Respiratory rate normal; decreased breath sounds, prolonged expiration. ABDOMEN: Soft, nontender, liver spleen not palpable, no masses palpable. PSYCH: Alert and oriented x3; mood and affect slightly anxiousl. NEUROLOGICAL: Cranial nerves grossly intact; no facial asymmetry, power and sensation grossly intact. MUSCULAR schedule: Evidence of arthritis LYMPHATICS: No lymph nodes palpable in the axilla and neck INVESTIGATIONS, reviewed in the clinical context: White count 14.7 hemoglobin 16 platelets 160 potassium 4.5 creatinine 0.95 EKG tracing personally reviewed by me-sinus rhythm with P pulmonale Chest x-ray pending Assessment: -Acute COPD exacerbation with a current smoker -Acute tracheobronchitis -Chronic nicotine dependence cigarettes smoker -Rheumatoid arthritis -Essential hypertension or white coat hypertension blood pressure is running on the higher side. Plan: Patient be started on nebulized bronchodilators, inhaled and IV steroids. Sputum will be sent for Gram stain and culture. We'll put the patient in IV ceftriaxone and Zithromax. Results for COVID 19 Ye pending. Care was discussed with the patient. Question answered Smoke cessation counseling: This was done with the patient. Nicotine patch is being given. More than 3 minutes was spent for this Past Medical History Past Medical History: Rheumatoid Arthritis (RA) Additional Past Medical History / Comment(s): hemorrhoids History of Any Multi-Drug Resistant Organisms: None Reported Past Surgical History: Tonsillectomy Additional Past Surgical History / Comment(s): tubal ligation Past Anesthesia/Blood Transfusion Reactions: No Reported Reaction Past Psychological History: No Psychological Hx Reported Smoking Status: Current every day smoker Past Alcohol Use History: None Reported Past Drug Use History: None Reported - Past Family History Father Family Medical History: No Reported History Medications and Allergies Home Medications Medication Instructions Recorded Confirmed Type Hydroxychloroquine Sulfate 200 mg PO BID 09/27/19 06/06/20 History [Plaquenil] Albuterol Inhaler (Mhu) [Ventolin 2 puff INHALATION RT-QID PRN 06/06/20 06/06/20 History Hfa Inhaler (Mhu)] Allergies Allergy/AdvReac Type Severity Reaction Status Date / Time No Known Allergies Allergy Verified 06/06/20 14:09 Physical Exam Vitals: Vital Signs Temp Pulse Pulse Resp BP BP Pulse Ox 06/06/20 18:42 99.0 F 92 152/80 95 06/06/20 16:00 19 06/06/20 15:50 97.7 F 91 16 151/89 94 L 06/06/20 15:00 98 F 84 22 151/67 93 L 06/06/20 14:57 104 H 06/06/20 14:48 100 06/06/20 14:00 92 24 137/81 95 06/06/20 13:31 102 H 24 137/81 95 06/06/20 13:23 107 H 06/06/20 13:15 98 06/06/20 12:35 98.7 F 111 H 22 141/76 94 L Intake and Output 06/06/20 06/06/20 06/06/20 06:59 14:59 22:59 Other: Voiding Method Toilet Weight 63.503 kg Results CBC & Chem 7: 06/06/20 13:08 06/06/20 13:08 Labs: Abnormal Lab Results - Last 24 Hours (Table) 06/06/20 06/06/20 06/06/20 Range/Units 13:08 13:08 16:31 WBC 14.7 H (3.8-10.6) k/uL RBC 5.50 H (3.80-5.40) m/uL Hct 49.2 H (34.0-46.0) % Neutrophils # 12.8 H (1.3-7.7) k/uL Lymphocytes # 0.8 L (1.0-4.8) k/uL POC Glucose (mg/dL) 161 H (75-99) mg/dL Lactate Dehydrogenase 912 H (313-618) U/L C-Reactive Protein 70.6 H (<10.0) mg/L Thrombosis Risk Factor Assmnt - Choose All That Apply Each Factor Represents 1 point: Abnormal pulmonary function (COPD), Obesity (BMI >25) Other Risk Factors: Yes Each Risk Factor Represents 2 Points: Age 61-74 years Thrombosis Risk Factor Assessment Total Risk Factor Score: 4 Thrombosis Risk Factor Assessment Level: Moderate Risk
[2020-06-06] MEDS ORDERED: ACETAMINOPHEN TAB 325 MG TAB PO PRN (21:30)
[2020-06-06] MEDS ORDERED: LACTULOSE 20 GM/30 ML CUP PO PRN (21:30)
[2020-06-06] MEDS ORDERED: CALCIUM CARBONATE 500 MG CHEWABLE PO PRN (21:30)
[2020-06-06] MEDS ORDERED: MAGNESIUM HYDROXIDE 2,400 MG/10 ML CUP PO PRN (21:30)
[2020-06-06] MEDS ORDERED: NALOXONE 0.4 MG/ML 1 ML VIAL IV PRN (21:30)
[2020-06-06] MEDS ORDERED: MAG HYDROX/AL HYDROX/SIMETH 30 ML CUP PO PRN (21:30)
[2020-06-06] MEDS ORDERED: MELATONIN 3 MG TABLET PO PRN (21:30)
[2020-06-06] MEDS ORDERED: ONDANSETRON 4 MG/2 ML VIAL IVP PRN (21:30)
[2020-06-06] MEDS: IPRATROPIUM-ALBUTEROL 3 ML NEB INHALATION SCH ×2 (21:58→23:18)
[2020-06-06] MEDS: BUDESONIDE 1 MG/2 ML NEBU INHALATION SCH (21:59)
[2020-06-06] MEDS: HYDROXYCHLOROQUINE SULFATE 200 MG TAB PO SCH (22:04)
[2020-06-06] MEDS: NICOTINE 21MG/24HR PATCH TRANSDERM SCH (22:26)
[2020-06-06] MEDS: ENOXAPARIN 40 MG/0.4 ML SYRINGE SQ SCH (22:26)
[2020-06-06] MEDS: methylPREDNISolone SOD SUCCI 40 MG/ML 1 ML VIAL IV SCH (23:06)
[2020-06-07] MEDS: IPRATROPIUM-ALBUTEROL 3 ML NEB INHALATION SCH ×7 (01:18→23:20)
[2020-06-07 06:50] LABS: Glucose,Whole Blood 131 mg/dL (75-99)
[2020-06-07] MEDS: methylPREDNISolone SOD SUCCI 40 MG/ML 1 ML VIAL IV SCH ×3 (07:39→23:03)
[2020-06-07] MEDS: ENOXAPARIN 40 MG/0.4 ML SYRINGE SQ SCH (07:40)
[2020-06-07] MEDS: NICOTINE 21MG/24HR PATCH TRANSDERM SCH (07:40)
[2020-06-07] MEDS: HYDROXYCHLOROQUINE SULFATE 200 MG TAB PO SCH ×2 (07:40→21:13)
[2020-06-07] MEDS ORDERED: TIOTROPIUM 18 MCG/PUFF INHALER INHALATION SCH (08:00)
--- NOTE | 2020-06-07 08:00 | XR ---
EXAMINATION TYPE: XR chest 1V DATE OF EXAM: 06/07/2020 COMPARISON: 09/27/2019 HISTORY: COPD TECHNIQUE: Single frontal view of the chest is obtained. FINDINGS: There is no focal air space opacity, pleural effusion, or pneumothorax seen. The cardiac silhouette size is within normal limits. The osseous structures are intact. Hyperinflation suggests COPD. No overt failure. Small nodular density adjacent to the cardiac border. IMPRESSION: Correlate for COPD. Nodular density adjacent to left heart border measuring [address] recommended.
[2020-06-07] MEDS: BUDESONIDE 1 MG/2 ML NEBU INHALATION SCH ×2 (08:44→19:48)
[2020-06-07 10:20] LABS: Ferritin 517.8 ng/mL (10.0-291.0)
[2020-06-07] MEDS: guaiFENesin 600 MG TABLET.ER PO SCH ×2 (13:19→21:14)
[2020-06-07] MEDS: AZITHROMYCIN 500 MG TAB PO SCH (15:34)
--- NOTE | 2020-06-07 20:37 | P.PN ---
Progress Note - Text Progress Note Date: 06/07/20 History of presenting complaint: This is a 59-year-old patient of Dr. Ruiz. Chronic stable medical conditions include rheumatoid arthritis, hypertension, recently admitted to the hospital for pancreatitis. Patient's long-standing smoker. 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 Denies any fever and chills. Appetite is okay. No change in bowel movement. Pain associated. No change in taste or smell. Feeling better after getting bronchodilator in the ER. In the post discharge Admitted with COPD exacerbation and acute tracheal bronchitis. Today-sitting at the window site. Congested cough. Breathing a bit better. Did tolerate her diet. Keen to go home. Review of systems: Was done for constitutional, cardiovascular, GI, pulmonary. relevant finding as above Active Medications Acetaminophen (Tylenol Tab) 650 mg PO Q6HR PRN PRN Reason: Mild Pain or Fever > 100.5 Last Admin: 06/07/20 00:55 Dose: 650 mg Documented by: Al Hydroxide/Mg Hydroxide (Maalox) 15 ml PO Q6HR PRN PRN Reason: Indigestion Albuterol/Ipratropium (Duoneb 0.5 Mg-3 Mg/3 Ml Soln) 3 ml INHALATION RT-Q4H [facility] Last Admin: 06/07/20 19:48 Dose: 3 ml Documented by: Azithromycin (Zithromax) 500 mg PO DAILY@1500 ABHISHEK Last Admin: 06/07/20 15:34 Dose: 500 mg Documented by: Budesonide (Pulmicort) 1 mg INHALATION RT-BID [facility] Last Admin: 06/07/20 19:48 Dose: 1 mg Documented by: Calcium Carbonate/Glycine (Tums) 1,000 mg PO Q4HR PRN PRN Reason: Dyspepsia Enoxaparin Sodium (Lovenox) 40 mg SQ DAILY [facility] Last Admin: 06/07/20 07:40 Dose: 40 mg Documented by: Guaifenesin (Mucinex) 1,200 mg PO Q12HR [facility] Last Admin: 06/07/20 13:19 Dose: 1,200 mg Documented by: Hydroxychloroquine Sulfate (Plaquenil) 200 mg PO BID [facility] Last Admin: 06/07/20 07:40 Dose: 200 mg Documented by: Ceftriaxone Sodium 1 gm/ (Sodium Chloride) 50 mls @ 100 mls/hr IVPB Q24H [facility] Last Admin: 06/06/20 22:04 Dose: 100 mls/hr Documented by: Lactulose (Cephulac) 20 gm PO DAILY PRN PRN Reason: Constipation Magnesium Hydroxide (Milk Of Magnesia) 2,400 mg PO DAILY PRN PRN Reason: Constipation Melatonin (Melatonin) 3 mg PO HS PRN PRN Reason: Insomnia Methylprednisolone Sodium Succinate (Solu-Medrol) 40 mg IV Q8HR [facility] Last Admin: 06/07/20 15:34 Dose: 40 mg Documented by: Naloxone HCl (Narcan) 0.2 mg IV Q2M PRN PRN Reason: Opioid Reversal Nicotine (Habitrol 21mg/24hr Patch) 1 patch TRANSDERM DAILY [facility] Last Admin: 06/07/20 07:40 Dose: 1 patch Documented by: Ondansetron HCl (Zofran) 4 mg IVP Q8HR PRN PRN Reason: Nausea And Vomiting Physical examination: VITAL SIGNS: 98.2, 91, 17, 161/94, 92% room air GENERAL: BMI 25.6, sitting at the bench by the window. EYES: Pupils equal. Conjunctiva normal. HEENT: External appearance of nose and ears normal, oral cavity grossly normal. NECK: JVD not raised; masses not palpable. HEART: First and second heart sounds are normal; no edema. LUNGS: Respiratory rate normal; decreased breath sounds, prolonged expiration. ABDOMEN: Soft, nontender, liver spleen not palpable, no masses palpable. PSYCH: Alert and oriented x3; mood and affect slightly anxious. INVESTIGATIONS, reviewed in the clinical context: White count 14.7 hemoglobin 16 platelets 160 potassium 4.5 creatinine 0.95 EKG tracing personally reviewed by me-sinus rhythm with P pulmonale Chest x-ray pending Assessment: -Acute COPD exacerbation with a current smoker -Acute tracheobronchitis -Chronic nicotine dependence cigarettes smoker -Rheumatoid arthritis -Essential hypertension Plan: Continue DuoNeb, Zithromax, and his steroids, IV ceftriaxone, IV Solu-Medrol,. Patient wishing to go home. Requestion her to stay for at least 24 hours. Start the patient on lisinopril hydrochlorothiazide.
[2020-06-07] MEDS: LISINOPRIL-HCTZ 10-12.5 MG 1 EACH TAB PO SCH (21:13)
[2020-06-08] MEDS: IPRATROPIUM-ALBUTEROL 3 ML NEB INHALATION SCH ×4 (05:00→15:16)
[2020-06-08] MEDS: BUDESONIDE 1 MG/2 ML NEBU INHALATION SCH (07:56)
[2020-06-08 08:04] VITALS: BP 133/78; RESP 15; TEMP 97.6
[2020-06-08] MEDS: guaiFENesin 600 MG TABLET.ER PO SCH (08:59)
[2020-06-08] MEDS: methylPREDNISolone SOD SUCCI 40 MG/ML 1 ML VIAL IV SCH (08:59)
[2020-06-08] MEDS: ENOXAPARIN 40 MG/0.4 ML SYRINGE SQ SCH (08:59)
[2020-06-08] MEDS: LISINOPRIL-HCTZ 10-12.5 MG 1 EACH TAB PO SCH (09:00)
[2020-06-08] MEDS: HYDROXYCHLOROQUINE SULFATE 200 MG TAB PO SCH (09:01)
[2020-06-08] MEDS: NICOTINE 21MG/24HR PATCH TRANSDERM SCH (09:03)
[2020-06-08 12:03] VITALS: PULSE 92
[2020-06-08] MEDS: AZITHROMYCIN 500 MG TAB PO SCH (14:59)
--- NOTE | 2020-06-08 23:28 | P.DS ---
Providers Date of admission: 06/06/20 14:45 Expected date of discharge: 06/08/20 Attending physician: Jonathan Eckert Primary care physician: Charlie Ruiz [facility] Course: History of presenting complaint: This is a 59-year-old patient of Dr. Ruiz. Chronic stable medical conditions include rheumatoid arthritis, hypertension, recently admitted to the hospital for pancreatitis. Patient's long-standing smoker. 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 Denies any fever and chills. Appetite is okay. No change in bowel movement. Pain associated. No change in taste or smell. Feeling better after getting bronchodilator in the ER. In the post discharge Admitted with COPD exacerbation and acute tracheal bronchitis. Treated with steroids, bronchodilators. Responded well. Today-breathing much better. Less wheezing. Oral intake fair. Less sputum. I want to the patient's stay back 1 more day. Very keen to go home today. Patient insisting that she does not smoke. Discussion and discharge planning more than 35 minutes Physical examination: VITAL SIGNS: 97.6, 93, 15, 133/78, 96% on 2 L GENERAL: Sitting up, more comfortable EYES: Pupils equal. Conjunctiva normal. HEENT: External appearance of nose and ears normal, oral cavity grossly normal. NECK: JVD not raised; masses not palpable. HEART: First and second heart sounds are normal; no edema. LUNGS: Respiratory rate normal; decreased breath sounds, prolonged expiration. Less wheezing ABDOMEN: Soft, nontender, liver spleen not palpable, no masses palpable. PSYCH: Alert and oriented x3; mood and affect slightly anxious. INVESTIGATIONS, reviewed in the clinical context: White count 14.7 hemoglobin 16 platelets 160 potassium 4.5 creatinine 0.95 EKG tracing personally reviewed by me-sinus rhythm with P pulmonale Chest x-ray hyperinflation. Nodular density adjacent to left heart border-7 mm. Assessment: -Acute COPD exacerbation with a current smoker -Acute tracheobronchitis -Chronic nicotine dependence cigarettes smoker -Rheumatoid arthritis -Essential hypertension -Left lung 7 mm nodular density. For outpatient computed tomography scan workup by PCP. Not urgent. Disposition: Home Patient Condition at Discharge: Stable Plan - Discharge Summary Discharge Rx Participant: No New Discharge Prescriptions: New Cefuroxime Axetil [Ceftin] 500 mg PO BID 3 Days #6 tab Ipratropium-Albuterol Nebulize [Duoneb 0.5 mg-3 mg/3 ml Soln] 3 ml INHALATION TID #90 ml Nicotine 21Mg/24Hr Patch [Habitrol] 1 patch TRANSDERM DAILY #14 patch predniSONE 10 mg PO DAILY #30 tab Budesonide-Formot 160-4.5 Mcg [Symbicort 160-4.5 Mcg Inhaler] 2 puff INHALATION BID #1 inhaler Azithromycin [Zithromax] 500 mg PO DAILY@1500 #3 tab Continue Hydroxychloroquine Sulfate [Plaquenil] 200 mg PO BID Albuterol Inhaler (Mhu) [Ventolin Hfa Inhaler (Mhu)] 2 puff INHALATION RT-QID PRN PRN Reason: Shortness Of Breath Discharge Medication List Hydroxychloroquine Sulfate [Plaquenil] 200 mg PO BID 09/27/19 [History] Albuterol Inhaler (Mhu) [Ventolin Hfa Inhaler (Mhu)] 2 puff INHALATION RT-QID PRN 06/06/20 [History] Azithromycin [Zithromax] 500 mg PO DAILY@1500 #3 tab 06/08/20 [Rx] Budesonide-Formot 160-4.5 Mcg [Symbicort 160-4.5 Mcg Inhaler] 2 puff INHALATION BID #1 inhaler 06/08/20 [Rx] Cefuroxime Axetil [Ceftin] 500 mg PO BID 3 Days #6 tab 06/08/20 [Rx] Ipratropium-Albuterol Nebulize [Duoneb 0.5 mg-3 mg/3 ml Soln] 3 ml INHALATION TID #90 ml 06/08/20 [Rx] Nicotine 21Mg/24Hr Patch [Habitrol] 1 patch TRANSDERM DAILY #14 patch 06/08/20 [Rx] predniSONE 10 mg PO DAILY #30 tab 06/08/20 [Rx] Follow up Appointment(s)/Referral(s): Nallely Arauz PAC [REFERRING] - 1-2 Days Patient Instructions/Handouts: COPD (Chronic Obstructive Pulmonary Disease) (DC) Activity/Diet/Wound Care/Special Instructions: Discharge/Stand Alone Forms: Work/School Release / Restrict Discharge Disposition: HOME SELF-CARE
== END 2020-06-08 15:25 | disposition home or self-care (01) | DRG 190 ==
LOC: EC 12:32 → SUPCPDRO 12:32 → 4SSUR 14:45
PROVIDERS: ADMIT Hospitalist; ATTEND Hospitalist
DX: J44.1 Chronic obstructive pulmonary disease with (acute) exacerbation (principal); J80 Acute respiratory distress syndrome; J44.0 Chronic obstructive pulmonary disease with (acute) lower respiratory infection; J20.9 Acute bronchitis, unspecified; I10 Essential (primary) hypertension; Z71.6 Tobacco abuse counseling; F17.210 Nicotine dependence, cigarettes, uncomplicated; M06.9 Rheumatoid arthritis, unspecified; Z79.899 Other long term (current) drug therapy; Z20.828 Contact with and (suspected) exposure to other viral communicable diseases; R91.1 Solitary pulmonary nodule; Z90.89 Acquired absence of other organs; Z98.51 Tubal ligation status; E66.9 Obesity, unspecified; Z68.25 Body mass index [BMI] 25.0-25.9, adult
CPT/HCPCS: 36415; 71045; 80053; 82550; 82728; 83605; 83615; 83735; 83880; 84145; 84484; 85025; 85379; 85610; 85730; 86140; 87040; 87070; 87205; 93005; 94640; 94760; 96361; 96374; 99285

== ENCOUNTER → 2020-06-30 | Outpatient (CLI) | payer BC ==
--- NOTE | 2020-06-30 10:14 | CT ---
EXAMINATION TYPE: CT chest w con DATE OF EXAM: 06/30/2020 COMPARISON: 09/27/2019 HISTORY: Follow up nodule CT DLP: 139.8 mGycm Automated exposure control for dose reduction was used. CONTRAST: CT scan of the chest is performed with IV Contrast, patient injected with 100 mL of Isovue 300. FINDINGS: LUNGS: Lingular parenchymal scarring is unchanged. The lungs are grossly clear, there is no concernin g parenchymal mass or nodule identified. There is no pleural effusion or pneumothorax seen. The tr acheobronchial tree is patent. MEDIASTINUM: There are no greater than 1 cm hilar or mediastinal lymph nodes. No pericardial effusi on is seen. Thoracic aorta is of normal caliber. The heart is not enlarged. UPPER ABDOMEN: No significant abnormality appreciated. OTHER: No additional significant abnormality is seen. IMPRESSION: Lingular scarring without evidence for distinct pulmonary nodule.
== END | disposition home or self-care (01) ==
LOC: RADCTMAIN 08:58
PROVIDERS: ATTEND Pediatrics
DX: J98.4 Other disorders of lung (principal)
CPT/HCPCS: 71260; Q9967

== ENCOUNTER 2020-11-21 20:03 | Emergency (ER) | payer BC ==
[2020-11-21 20:07] VITALS: TEMP 97.9
[2020-11-21] MEDS ORDERED: ONDANSETRON 4 MG/2 ML VIAL IVP STA (20:43)
[2020-11-21] MEDS ORDERED: KETOROLAC 15 MG/ML 1 ML VIAL IVP STA (20:43)
[2020-11-21] MEDS ORDERED: HYDROmorphone 0.5 MG/0.5 ML SYRINGE IVP STA (20:43)
[2020-11-21] MEDS ORDERED: SODIUM CHLORIDE 0.9% 1,000 ML IV STA (20:43)
[2020-11-21 21:03] LABS: Basophils % (A) 0 %; Eosinophils # (A) 0.2 k/uL (0-0.7); Eosinophils % (A) 1 %; HCT 45.1 % (34.0-46.0); HGB 15.3 gm/dL (11.4-16.0); Lymphocytes # (A) 0.7 k/uL (1.0-4.8); Lymphocytes % (A) 4 %; MCH 30.1 pg (25.0-35.0); MCHC 33.8 g/dL (31.0-37.0); MCV 88.9 fL (80.0-100.0); Mean Platelet Volume 7.2; Monocytes # (A) 0.7 k/uL (0-1.0); Monocytes % (A) 4 %; Neutrophils # (A) 17.6 k/uL (1.3-7.7); Neutrophils % (A) 91 %; Platelet Count 225 k/uL (150-450); RBC 5.07 m/uL (3.80-5.40); RDW 12.4 % (11.5-15.5); WBC 19.3 k/uL (3.8-10.6)
[2020-11-21 21:06] LABS: Appearance,Urine Clear (Clear); Bilirubin,Urine Negative (Negative); Blood,Urine Large (Negative); Color,Urine Yellow; Glucose,Urine (UA) Negative (Negative); Hyaline Casts,Urine 3 /lpf (0-2); Ketones,Urine Negative (Negative); Leukocyte Esterase,Urine Negative (Negative); Mucus,Urine Rare /hpf; Nitrite,Urine Negative (Negative); Protein,Urine Trace (Negative); RBC,Urine 85 /hpf (0-5); Specific Gravity,Urine 1.023 (1.001-1.035); Squamous Epithelial Cell,Urine <1 /hpf (0-4); Urobilinogen,Urine <2.0 mg/dL (<2.0); WBC,Urine 1 /hpf (0-5)
[2020-11-21 21:10] LABS: Albumin 4.5 g/dL (3.5-5.0); Calcium 10.2 mg/dL (8.4-10.2); Potassium 4.4 mmol/L (3.5-5.1); Total Bilirubin 0.4 mg/dL (0.2-1.3); Total Protein 7.6 g/dL (6.3-8.2)
--- NOTE | 2020-11-21 21:24 | ED ---
General Adult HPI - General Chief complaint: Back Pain/Injury Stated complaint: Lower Back Pain,Nausea Time Seen by Provider: 11/21/20 20:26 Source: patient, family Mode of arrival: ambulatory Limitations: no limitations - History of Present Illness Initial comments: 60-year-old female patient presents to the emergency department today for evaluation of left flank pain. Patient states the pain started earlier today. States she has been having problems with her shoulder and her physician did start on new medications that she has not had a bowel movement over the last 2 days. She denies any nausea or vomiting. Denies any hematuria, dysuria, urina ry frequency, urinary urgency. Denies any history of similar symptoms. Denies radiation of the pain down her legs. Denies saddle anesthesia or loss of bowel or bladder control. Denies any numbness or tingling to the lower extremities. Patient denies any recent rash, fever, chills, cough, shortness of breath, chest pain, back pain, numbness, tingling, dizziness, weakness, headache, visual gan es, or any other complaints. - Related Data Home Medications Medication Instructions Recorded Confirmed Hydroxychloroquine Sulfate 200 mg PO BID@0900,1700 09/27/19 11/21/20 [Plaquenil] Albuterol Inhaler [Ventolin Hfa 2 puff INHALATION RT-Q6H PRN 11/21/20 11/21/20 Inhaler] Cyclobenzaprine [Flexeril] 5 mg PO TID PRN 11/21/20 11/21/20 Fluticasone Propion/Salmeterol 1 puff INHALATION RT-BID@0900,1700 11/21/20 11/21/20 [Fluticasone-Salmeterol 500-50] predniSONE [Deltasone] See Taper PO DAILY 11/21/20 11/21/20 Previous Rx's Medication Instructions Recorded Hydrocodone/Acetaminophen [[place]ath 1 tab PO Q6HR PRN #12 tab 11/21/20 5-325] Ondansetron [Zofran ODT] 4 mg PO Q8HR PRN #10 tab 11/21/20 Tamsulosin HCl [Flomax] 0.4 mg PO DAILY #7 cap 11/21/20 Allergies Allergy/AdvReac Type Severity Reaction Status Date / Time No Known Allergies Allergy Verified 11/21/20 21:14 Review of Systems ROS Statement: Those systems with pertinent positive or pertinent negative responses have been documented in the HPI. ROS Other: All systems not noted in ROS Statement are negative. Past Medical History Past Medical History: COPD, Rheumatoid Arthritis (RA) Additional Past Medical History / Comment(s): hemorrhoids History of Any Multi-Drug Resistant Organisms: None Reported Past Surgical History: Tonsillectomy Additional Past Surgical History / Comment(s): tubal ligation Past Anesthesia/Blood Transfusion Reactions: No Reported Reaction Past Psychological History: No Psychological Hx Reported Smoking Status: Current every day smoker Past Alcohol Use History: None Reported Past Drug Use History: None Reported - Past Family History Father Family Medical History: No Reported History General Exam Limitations: no limitations General appearance: alert, in no apparent distress, other (Physical well- developed, well-nourished adult female patient in no acute distress. Vital signs upon presentation are temperature 97.9F, pulse 93, respirations 20, blood pressure 181/92, pulse ox 97% on room air.) Eye exam: Present: normal appearance, PERRL, EOMI. Absent: scleral icterus, conjunctival injection, periorbital swelling ENT exam: Present: normal exam, normal oropharynx, mucous membranes moist Respiratory exam: Present: normal lung sounds bilaterally. Absent: respiratory distress, wheezes, rales, rhonchi, stridor Cardiovascular Exam: Present: regular rate, normal rhythm, normal heart sounds. Absent: systolic murmur, diastolic murmur, rubs, gallop, clicks GI/Abdominal exam: Present: soft, normal bowel sounds. Absent: distended, tenderness, guarding, rebound, rigid Extremities exam: Present: normal inspection, full ROM, normal capillary refill. Absent: tenderness, pedal edema, joint swelling, calf tenderness Back exam: Present: normal inspection. Absent: vertebral tenderness Neurological exam: Present: alert, oriented X3, CN II-XII intact Psychiatric exam: Present: normal affect, normal mood Skin exam: Present: warm, dry, intact, normal color. Absent: rash Course Vital Signs 11/21/20 11/21/20 20:04 22:17 Temperature 97.9 F Pulse Rate 93 92 Respiratory 20 18 Rate Blood Pressure 181/92 154/77 O2 Sat by Pulse 97 98 Oximetry Medical Decision Making - Medical Decision Making 60-year-old female patient presents to the emergency department today for evaluation of left flank pain. States she has not had a bowel movement in the last 2 days. Physical examination did reveal soft nontender abdomen. She did have left CVA tenderness. Labs reviewed and did reveal white blood cell count at 19.3 with neutrophils of 17.6. Lymphocytes 0.7. Lipase 24, creatinine 1.25. Urinalysis did show trace protein, large blood, 85 red blood cells, no bacteria, no white blood cells. CT abdomen and pelvis was obtained and did show evidence for a 5 mm proximal ureteral stone on the left side. There is moderate hydronephrosis. White blood cell count elevation is most likely due to patient's currently taking steroids for left shoulder pain. She is afebrile, vital signs. I did discuss findings and results with her. We will treat with Flomax, pain medication, nausea medication for kidney stone. She is instructed to follow-up with the urologist as soon as possible. Return parameters discussed in detail. She verbalizes understanding and agrees with this plan. - Lab Data Result diagrams: 11/21/20 20:51 11/21/20 20:51 Lab Results 11/21/20 11/21/20 11/21/20 Range/Units 20:51 20:51 20:51 WBC 19.3 H (3.8-10.6) k/uL RBC 5.07 (3.80-5.40) m/uL Hgb 15.3 (11.4-16.0) gm/dL Hct 45.1 (34.0-46.0) % MCV 88.9 (80.0-100.0) fL MCH 30.1 (25.0-35.0) pg MCHC 33.8 (31.0-37.0) g/dL RDW 12.4 (11.5-15.5) % Plt Count 225 (150-450) k/uL MPV 7.2 Neutrophils % 91 % Lymphocytes % 4 % Monocytes % 4 % Eosinophils % 1 % Basophils % 0 % Neutrophils # 17.6 H (1.3-7.7) k/uL Lymphocytes # 0.7 L (1.0-4.8) k/uL Monocytes # 0.7 (0-1.0) k/uL Eosinophils # 0.2 (0-0.7) k/uL Basophils # 0.0 (0-0.2) k/uL Sodium 140 (137-145) mmol/L Potassium 4.4 (3.5-5.1) mmol/L Chloride 109 H (98-107) mmol/L Carbon Dioxide 24 (22-30) mmol/L Anion Gap 7 mmol/L BUN 24 H (7-17) mg/dL Creatinine 1.25 H (0.52-1.04) mg/dL Est GFR (CKD-EPI)AfAm 53 (>60 ml/min/1.73 sqM) Est GFR (CKD-EPI)NonAf 46 (>60 ml/min/1.73 sqM) Glucose 105 H (74-99) mg/dL Calcium 10.2 (8.4-10.2) mg/dL Total Bilirubin 0.4 (0.2-1.3) mg/dL AST 25 (14-36) U/L ALT 20 (4-34) U/L Alkaline Phosphatase 102 (38-126) U/L Total Protein 7.6 (6.3-8.2) g/dL Albumin 4.5 (3.5-5.0) g/dL Lipase 39 (23-300) U/L Urine Color Yellow Urine Appearance Clear (Clear) Urine pH 5.0 (5.0-8.0) Ur Specific [place] 1.023 (1.001-1.035) Urine Protein Trace H (Negative) Urine Glucose (UA) Negative (Negative) Urine Ketones Negative (Negative) Urine Blood Large H (Negative) Urine Nitrite Negative (Negative) Urine Bilirubin Negative (Negative) Urine Urobilinogen <2.0 (<2.0) mg/dL Ur Leukocyte Esterase Negative (Negative) Urine RBC 85 H (0-5) /hpf Urine WBC 1 (0-5) /hpf Ur Squamous Epith Cells <1 (0-4) /hpf Hyaline Casts 3 H (0-2) /lpf Urine Mucus Rare H (None) /hpf - Radiology Data Radiology results: report reviewed, image reviewed CT abdomen and pelvis is obtained with contrast. Report reviewed in its entirety. Impression by Dr. Wiley shows obstructing left proximal ureteral calculus with moderate hydronephrosis. A few borderline prominent small bowel loops in the lower abdomen, most compatible with ileus. No overt bowel obstruction. Disposition Clinical Impression: Left ureteral stone, Hydronephrosis, left Disposition: HOME SELF-CARE Condition: Good Instructions (If sedation given, give patient instructions): Kidney Stones (ED) Additional Instructions: Take medications as directed. Increase fluids. Follow-up with urologist as soon as possible, call in the morning for an appointment. Follow-up through primary care physician for recheck in 1-2 days. Return to the emergency department for any new, worsening, or concerning symptoms. Prescriptions: Tamsulosin HCl [Flomax] 0.4 mg PO DAILY #7 cap Hydrocodone/Acetaminophen [Bath 5-325] 1 tab PO Q6HR PRN #12 tab PRN Reason: Pain Ondansetron [Zofran ODT] 4 mg PO Q8HR PRN #10 tab PRN Reason: Nausea Is patient prescribed a controlled substance at d/c from ED?: No Referrals: Miguel Schmidt MD [Primary Care Provider] - 1-2 days Kemal Honeycutt MD [STAFF PHYSICIAN] - 1-2 days Time of Disposition: 22:02
--- NOTE | 2020-11-21 21:46 | CT ---
EXAMINATION TYPE: CT abdomen pelvis w con DATE OF EXAM: 11/21/2020 COMPARISON: None available. HISTORY: left flank pain, constipation CT DLP: 663.4 mGycm Automated exposure control for dose reduction was used. TECHNIQUE: Helical acquisition of images was performed from the lung bases through the pelvis. CONTRAST: Performed without Oral Contrast and with IV Contrast, patient injected with 100 mL of Isovue 300. FINDINGS: LUNG BASES: No significant abnormality is appreciated. LIVER/GB: No significant abnormality is appreciated. PANCREAS: No significant abnormality is seen. SPLEEN: No significant abnormality is seen. ADRENALS: No significant abnormality is seen. KIDNEYS: 5 mm calculus in the left proximal ureter with resultant moderate hydronephrosis. No right h ydronephrosis or nephrolithiasis. FREE AIR: No free air is visualized. RETROPERITONEAL ADENOPATHY: None visualized REPRODUCTIVE ORGANS: No significant abnormality is seen URINARY BLADDER: No significant abnormality is seen. PELVIC ADENOPATHY: None visualized. OSSEOUS STRUCTURES: No significant abnormality is seen. BOWEL: A few borderline prominent small bowel loops in the lower abdomen. No overt bowel obstruction , free air or fluid. OTHER: None IMPRESSION: 5 MM OBSTRUCTING LEFT PROXIMAL URETERAL CALCULUS WITH MODERATE HYDRONEPHROSIS. A FEW BORDERLINE PROMINENT SMALL BOWEL LOOPS IN LOWER ABDOMEN, MOST COMPATIBLE WITH ILEUS. NO OVERT BOWEL OBSTRUCTION.
[2020-11-21] MEDS ORDERED: IBUPROFEN 600 MG STARTER PACK 4 TAB BTL PO STA (22:00)
[2020-11-21] MEDS ORDERED: ACET/COD 300 MG/30 MG STARTER PACK 6 TAB BTL PO STA (22:00)
[2020-11-21] MEDS ORDERED: ONDANSETRON 4 MG ODT STARTER PACK 2 TAB BTL PO STA (22:00)
[2020-11-21] MEDS ORDERED: TAMSULOSIN 0.4 MG CAP.ER.24H PO STA (22:03)
[2020-11-21 22:18] VITALS: BP 154/77; PULSE 92; RESP 18
== END 2020-11-21 22:35 | disposition home or self-care (01) ==
LOC: EC 20:03
DX: N13.2 Hydronephrosis with renal and ureteral calculous obstruction (principal); M25.512 Pain in left shoulder; D72.829 Elevated white blood cell count, unspecified; F17.200 Nicotine dependence, unspecified, uncomplicated; J44.9 Chronic obstructive pulmonary disease, unspecified; M06.9 Rheumatoid arthritis, unspecified; Z79.52 Long term (current) use of systemic steroids; Z79.51 Long term (current) use of inhaled steroids; Z79.899 Other long term (current) drug therapy
CPT/HCPCS: 36415; 80053; 83690; 85025; 81001; 74177; 99284; 96374; 96375 ×2; 96361; J2405; J1885; S0119; J1170; Q9967

== ENCOUNTER 2020-12-02 06:26 | Day surgery (SDC) | payer BC ==
--- NOTE | 2020-11-27 17:32 | P.GSHP ---
History of Present Illness H&P Date: 11/27/20 Chief Complaint: Left flank pain The patient is a 60-year-old white female with no prior history of urolithiasis. On 11/21/2020 she experienced severe left renal colic. CT scan showed a 5 x 8 mm left UPJ calculus, resulting in moderate left hydronephrosis. She underwent insertion of a left ureteral stent in 11/24/2020. She was offered the options of ESWL versus ureteroscopy with laser lithotripsy and has elected to undergo the latter. - Constitutional Constitutional: Denies chills, Denies fever - Gastrointestinal Gastrointestinal: Reports nausea - Genitourinary (Female) Genitourinary: Reports flank pain, Reports kidney stones Past Medical History Past Medical History: COPD, Rheumatoid Arthritis (RA) Additional Past Medical History / Comment(s): hemorrhoids History of Any Multi-Drug Resistant Organisms: None Reported Past Surgical History: Tonsillectomy Additional Past Surgical History / Comment(s): tubal ligation Past Anesthesia/Blood Transfusion Reactions: No Reported Reaction Past Psychological History: No Psychological Hx Reported Smoking Status: Current every day smoker Past Alcohol Use History: None Reported Past Drug Use History: None Reported - Past Family History Father Family Medical History: No Reported History Medications and Allergies Home Medications Medication Instructions Recorded Confirmed Type Hydroxychloroquine Sulfate 200 mg PO BID@0900,1700 09/27/19 11/21/20 History [Plaquenil] Albuterol Inhaler [Ventolin Hfa 2 puff INHALATION RT-Q6H PRN 11/21/20 11/21/20 History Inhaler] Cyclobenzaprine [Flexeril] 5 mg PO TID PRN 11/21/20 11/21/20 History Fluticasone Propion/Salmeterol 1 puff INHALATION RT-BID@0900,1700 11/21/20 11/21/20 History [Fluticasone-Salmeterol 500-50] Hydrocodone/Acetaminophen [[place] 1 tab PO Q6HR PRN #12 tab 11/21/20 Rx 5-325] Ondansetron [Zofran ODT] 4 mg PO Q8HR PRN #10 tab 11/21/20 Rx Tamsulosin HCl [Flomax] 0.4 mg PO DAILY #7 cap 11/21/20 Rx predniSONE [Deltasone] See Taper PO DAILY 11/21/20 11/21/20 History Allergies Allergy/AdvReac Type Severity Reaction Status Date / Time No Known Allergies Allergy Verified 11/21/20 21:14 Surgical - Exam - General well developed, well nourished, moderate pain - Neck no masses, trachea midline - Respiratory normal respiratory effort, clear to auscultation - Cardiovascular Rhythm: regular Abnormal Heart Sounds: no systolic murmur, no diastolic murmur, no rub, no S3 Gallop, no S4 Gallop, no click, no other - Abdomen Abdomen: soft, non tender, no guarding, no rigid, no rebound - Genitourinary normal external genitalia - Psychiatric oriented to time, oriented to person, oriented to place, speech is normal, memory intact Results - Imaging CT scan - abdomen: report reviewed, image reviewed Assessment and Plan (1) Left ureteral stone Status: Acute Code(s): N20.1 - CALCULUS OF URETER SNOMED Code(s): 68360885 Plan: Cystoscopy, left ureteral stent removal, left ureteroscopy with Holmium laser lithotripsy and possible stone basketing. The procedure has been reviewed in detail with the patient. She is aware of potential risks, which include anesthesia, infection, and ureteral injury.
[2020-11-30 08:51] VITALS: BMI 24.7
[2020-12-02] MEDS ORDERED: SCOPOLAMINE 1.5MG/72HR PATCH TRANSDERM ONE (07:16)
[2020-12-02] MEDS ORDERED: LACTATED RINGERS 1,000 ML IV SCH (07:16)
[2020-12-02] MEDS ORDERED: DEXAMETHASONE SOD PHOSPHATE 4 MG/ML 1 ML VIAL IV ONE (07:16)
[2020-12-02] MEDS ORDERED: LIDOCAINE 1% (10MG/ML) FOR IV START INTRADERMA PRN (07:16)
[2020-12-02] MEDS ORDERED: ONDANSETRON 4 MG/2 ML VIAL IVP ONE (07:16)
--- NOTE | 2020-12-02 07:39 | XR ---
EXAMINATION TYPE: XR abdomen 1V DATE OF EXAM: 12/02/2020 Comparison: CT 11/21/2020 Clinical History: 60-year-old female scheduled for the OR today for left renal calculus, stent placed last week, calculus Findings: Lung bases clear. Nonobstructive bowel gas pattern. Left ureteral stent noted. There is suggestion of some subtle calcification along the proximal segment of the stent which corresponds to the calculus seen on the 11/21/2020 CT. Bilateral pelvic fluid was. Scattered [id number] stool. Impression: Left ureteral stent. Suggestion of some calculi along the proximal portion of the stent in the upper ureter/UPJ region.
[2020-12-02] MEDS ORDERED: LIDOCAINE 1% INJ 10MG/ML (20 ML MDV) ONE (08:21)
[2020-12-02] MEDS ORDERED: fentaNYL (PF) 50 MCG/ML 2 ML AMP ONE (08:21)
[2020-12-02] MEDS ORDERED: PROPOFOL 10 MG/ML 20 ML VIAL IV ONE (08:21)
[2020-12-02] MEDS ORDERED: MIDAZOLAM 2 MG/2 ML VIAL ONE (08:21)
[2020-12-02] MEDS ORDERED: KETOROLAC 15 MG/ML 1 ML VIAL ONE (08:21)
--- NOTE | 2020-12-02 09:30 | P.OP ---
Date of Procedure: 12/02/20 Preoperative Diagnosis: Left ureteral calculus Postoperative Diagnosis: Same Procedure(s) Performed: Cystoscopy, left ureteral stent removal, left ureteroscopy with Holmium laser lithotripsy and stone basketing Anesthesia: JENNI Surgeon: Collins Carmona Estimated Blood Loss (ml): 0 IV fluids (ml): 600 Pathology: other (Stone fragment, sent for chemical analysis) Condition: stable Disposition: PACU Indications for Procedure: The patient is a 60-year-old white female with no prior history of urolithiasis. On 11/21/2020 she experienced severe left renal colic. CT scan showed a 5 x 8 mm left UPJ calculus, resulting in moderate left hydronephrosis. She underwent insertion of a left ureteral stent in 11/24/2020. She was offered the options of ESWL versus ureteroscopy with laser lithotripsy and has elected to undergo the latter. Operative Findings: Complete fragmentation of the calculus. Description of Procedure: The patient was taken to the operating room and placed in the dorsolithotomy position, with legs supported in Kendall stirrups. The external genitalia was prepped and draped sterilely. The 30 lens was used to introduce the 21-Palauan Jiménez cystoscopic sheath through the urethra and into the bladder under direct vision. The bladder was examined in its entirety. The distal end of the left ureteral stent was grasped with grasping forceps and withdrawn along with the cystoscope. The flexible ureteroscope was passed into the bladder, but the left ureteral orifice could not be cannulated. A 0.035 inch Glidewire was passed through the ureteroscope. The ureteral orifice was cannulated, and the Glidewire was advanced up to the renal pelvis. The ureteroscope was removed, and an 11/13-Palauan ureteral access catheter was passed over the wire, up to the proximal ureter. The flexible ureteroscope was then passed through the ureteral access catheter sheath, up to the stone. The 200 micron Holmium laser probe was passed through the ureteroscope, and lithotripsy was performed. Initially, a dusting was performed with the calculus was very dense, likely composed of calcium oxalate monohydrate, and it preferentially fractured. The largest portion of the calculus refluxed into a mid pole calculus. Lithotripsy was continued. A 1.9-Palauan nitinol basket was then used to retrieve the largest of these fragments, but it proved only be 1 mm in size. The laser was then used to "popcorn" the remaining calculus fragments into particles under 1 mm in size. The ureteroscope was slowly withdrawn under direct vision. There were no residual calculus fragments seen within the ureter, and no evidence of ureteral trauma. The patient tolerated the procedure well and was taken to the recovery room in stable condition. PATY HALL Report: Procedure Acuity: Elective Stone Size and Location: 5x8 mm, left proximal ureter Ureteral Dilation: No Ureteral Access Sheath Used: Yes Stone Sent for Analysis: Yes All Stones/Fragments Were Removed with a Basket: No Complications: No Preoperative Antibiotics Given: Yes Stent Placed: No Discharge Medications: None
[2020-12-02 09:34] VITALS: TEMP 97
[2020-12-02] MEDS ORDERED: hydrALAZINE HCL 20 MG/ML 1 ML VIAL IVP ONE (10:25)
[2020-12-02] MEDS: HYDROmorphone 0.5 MG/0.5 ML SYRINGE IVP PRN ×2 (10:55→10:56)
[2020-12-02 10:58] VITALS: RESP 16
[2020-12-02] MEDS ORDERED: HYDROcodone/APAP 5-325MG 1 EACH TAB PO ONE (11:30)
[2020-12-02] MEDS ORDERED: HYDROcodone/APAP 5-325MG 1 EACH TAB ONE (11:34)
[2020-12-02 11:52] VITALS: BP 157/86; PULSE 94
--- NOTE | 2020-12-02 13:04 | FL ---
EXAMINATION TYPE: FL fluoroscopy <1hr DATE OF EXAM: 12/02/2020 COMPARISON: NONE HISTORY: Left stone removal Fluoroscopy support supplied to the referring clinician. See dictated report from urology, 25 second s fluoroscopy time, single intraoperative image documents the procedure
== END 2020-12-02 12:21 | disposition home or self-care (01) ==
LOC: OR 06:26
PROVIDERS: ATTEND Urology
DX: N13.2 Hydronephrosis with renal and ureteral calculous obstruction (principal); J44.9 Chronic obstructive pulmonary disease, unspecified; M06.9 Rheumatoid arthritis, unspecified; F17.210 Nicotine dependence, cigarettes, uncomplicated; Z90.89 Acquired absence of other organs; Z98.51 Tubal ligation status; Z87.442 Personal history of urinary calculi; Z79.891 Long term (current) use of opiate analgesic; Z79.51 Long term (current) use of inhaled steroids; Z79.899 Other long term (current) drug therapy
CPT/HCPCS: 82365; 76000; 74018; 52353; C1769; J2250; J0360; J1100; J0690; J2405; J2001; J3010; J1885; J2704; J1170

== ENCOUNTER → 2021-01-06 | Outpatient (CLI) | payer BC ==
--- NOTE | 2021-01-06 11:42 | US ---
EXAMINATION TYPE: US kidneys/renal and bladder DATE OF EXAM: 01/06/2021 COMPARISON: CT November 21, 2020 CLINICAL HISTORY: N13.30 HYDRONEPHROSIS. Hydronephrosis EXAM MEASUREMENTS: Right Kidney: 9.1 x 5.1 x 3.7 cm Left Kidney: 10.5 x 4.6 x 4.7 cm Right Kidney: No hydronephrosis or masses seen Left Kidney: No hydronephrosis or masses seen Bladder: wnl Bilateral Jets seen: Yes There is no evidence for hydronephrosis at this point in time on current study. Interval successful treatment or clearance of the obstructing proximal left ureter stone. No nephrolithiasis is seen. No masses are identified on images saved. The urinary bladder is anechoic. Bilateral ureteral jets ar e seen currently. IMPRESSION: Interval successful treatment or clearance of the obstructing left proximal ureter calcul us
== END ==
LOC: RADUSWWP 08:52
PROVIDERS: ATTEND Urology
DX: N13.30 Unspecified hydronephrosis (principal)
CPT/HCPCS: 76770

== ENCOUNTER → 2021-03-10 | Outpatient (CLI) | payer BC ==
[2021-03-11 03:45] LABS: Anion Gap 13.1 mmol/L (4.00-12.00); Carbon Dioxide 23.9 mmol/L (21.6-31.8); Potassium 4.4 mmol/L (3.5-5.5)
== END | disposition home or self-care (01) ==
LOC: LABWHC1 12:31
PROVIDERS: ATTEND Urology
DX: R82.991 Hypocitraturia (principal)
CPT/HCPCS: 36415; 80051

== ENCOUNTER → 2021-09-30 | Outpatient (CLI) | payer BC ==
--- NOTE | 2021-09-30 15:11 | XR ---
EXAMINATION TYPE: XR chest 2V DATE OF EXAM: 09/30/2021 COMPARISON: Chest x-ray 06/07/2020, CT 06/30/2020 HISTORY: COPD, J 44.1 TECHNIQUE: Frontal and lateral views of the chest are obtained. FINDINGS: There is no focal air space opacity, pleural effusion, or pneumothorax seen. The cardiac silhouette size is within normal limits. There are prominent lung volumes with flattening the hemidia phragms. The osseous structures are intact. IMPRESSION: No acute cardiopulmonary process. Emphysema.
== END | disposition home or self-care (01) ==
LOC: RADXRMAIN 14:06
DX: J44.1 Chronic obstructive pulmonary disease with (acute) exacerbation (principal)
CPT/HCPCS: 71046

== ENCOUNTER 2023-12-04 15:54 | Emergency (ER) | payer MEDICARE, OTHER ==
--- NOTE | 2023-12-04 16:17 | ED ---
General Adult HPI - General Source: patient, RN notes reviewed Mode of arrival: ambulatory Limitations: no limitations <Kelle Russo - Last Filed: 12/04/23 16:15> - General Source: patient, RN notes reviewed Limitations: no limitations <Dipak Farr - Last Filed: 12/04/23 20:59> - General Chief complaint: Upper Respiratory Infection Stated complaint: Congestion Time Seen by Provider: 12/04/23 16:15 - History of Present Illness Initial comments: 63-year-old female with past medical history of COPD presents to the emergency department for evaluation of nasal congestion with cough and shortness of breath. He denies fever, chills, nausea, vomiting. (Kelle Russo) Patient is a pleasant 63-year-old female presenting to the emergency Department with congestion. Onset of symptoms was just a couple of days ago. Patient has congestion in her nose and sinuses. Patient does have occasional cough and mild wheezing. Patient does have history of COPD with similar symptoms. No fever. Patient states usually antibiotics and steroids help her clear up with this. Patient did take her blood pressure it was high earlier, unclear exactly how high. Patient did take her lisinopril today as prescribed. (Dipak Farr) - Related Data Home Medications Medication Instructions Recorded Confirmed Hydroxychloroquine Sulfate 200 mg PO BID@0900,1700 09/27/19 11/30/20 [Plaquenil] Albuterol Inhaler [Ventolin Hfa 2 puff INHALATION RT-Q6H PRN 11/21/20 11/30/20 Inhaler] Cyclobenzaprine [Flexeril] 5 mg PO TID PRN 11/21/20 11/30/20 Fluticasone Propion/Salmeterol 1 puff INHALATION RT-BID@0900,1700 11/21/20 11/30/20 [Fluticasone-Salmeterol 500-50] Previous Rx's Medication Instructions Recorded Hydrocodone/Acetaminophen [[place] 1 tab PO Q6HR PRN #12 tab 11/21/20 5-325] Tamsulosin HCl [Flomax] 0.4 mg PO DAILY #7 cap 11/21/20 Azithromycin [Zithromax Z Pack] 250 mg PO DAILY #6 tab 12/04/23 predniSONE [Deltasone] 20 mg PO BID #10 tab 12/04/23 Allergies Allergy/AdvReac Type Severity Reaction Status Date / Time No Known Allergies Allergy Verified 11/30/20 08:44 Review of Systems ROS Other: All systems not noted in ROS Statement are negative. <Kelle Russo - Last Filed: 12/04/23 16:15> ROS Other: All systems not noted in ROS Statement are negative. Constitutional: Denies: fever Eyes: Denies: eye pain ENT: Reports: congestion. Denies: ear pain Respiratory: Reports: cough, wheezes Cardiovascular: Denies: chest pain Endocrine: Denies: fatigue <Dipak Farr - Last Filed: 12/04/23 20:59> ROS Statement: Those systems with pertinent positive or pertinent negative responses have been documented in the HPI. Past Medical History Past Medical History: COPD, Rheumatoid Arthritis (RA) Additional Past Medical History / Comment(s): hemorrhoids, KIDNEY STONES History of Any Multi-Drug Resistant Organisms: None Reported Past Surgical History: Adenoidectomy, Tonsillectomy, Tubal Ligation Additional Past Surgical History / Comment(s): LT URETEROSCOPY WITH STENT PLACEMENT Past Anesthesia/Blood Transfusion Reactions: No Reported Reaction Past Psychological History: No Psychological Hx Reported Smoking Status: Current every day smoker Past Alcohol Use History: None Reported Past Drug Use History: None Reported - Past Family History Father Family Medical History: No Reported History <Kelle Russo - Last Filed: 12/04/23 16:15> General Exam Limitations: no limitations <Kelle Russo - Last Filed: 12/04/23 16:15> Limitations: no limitations General appearance: alert, in no apparent distress Head exam: Present: normocephalic Eye exam: Present: normal appearance ENT exam: Present: normal oropharynx Neck exam: Present: normal inspection Respiratory exam: Present: rhonchi Cardiovascular Exam: Present: regular rate, normal rhythm GI/Abdominal exam: Present: soft. Absent: tenderness Extremities exam: Present: normal inspection Neurological exam: Present: alert Psychiatric exam: Present: normal affect, normal mood Skin exam: Present: normal color <Dipak Farr - Last Filed: 12/04/23 20:59> - General Exam Comments Initial Comments: Visual Physical Exam Vital signs reviewed General: Well-appearing, nontoxic, no acute distress. Head: Normocephalic, atraumatic Eyes: PERRLA, EOMI ENT: Airway patent Chest: Nonlabored breathing Skin: No visual rash, normal skin tone Neuro: Alert and oriented 3 Musculoskeletal: No gross abnormalities (Kelle Russo) Course Vital Signs 12/04/23 12/04/23 12/04/23 16:06 18:48 20:10 Temperature 98.5 F Pulse Rate 88 85 88 Respiratory 18 20 18 Rate Blood Pressure 169/112 186/117 133/67 O2 Sat by Pulse 94 L 96 95 Oximetry 12/04/23 20:45 Temperature Pulse Rate 92 Respiratory 18 Rate Blood Pressure 169/82 O2 Sat by Pulse 96 Oximetry Medical Decision Making <Kelle Russo - Last Filed: 12/04/23 16:15> - Lab Data Result diagrams: 12/04/23 19:09 12/04/23 20:05 <Dipak Farr - Last Filed: 12/04/23 20:59> - Medical Decision Making Quick note performed by Kelle Russo PA-C (Kelle Russo) Was pt. sent in by a medical professional or institution (DOMINICK Galindo, PER DIEM PHYSICAL THERAPIST ASSISTANT, urgent care, hospital, or prison...) When possible be specific @ -No Did you speak to anyone other than the patient for history (EMS, parent, family, police, friend...)? What history was obtained from this source @ -No Did you review nursing and triage notes (agree or disagree)? Why? @ -I reviewed and agree with nursing and triage notes Were old charts reviewed (outside hosp., previous admission, EMS record, old EKG, old radiological studies, urgent care reports/EKG's, prison records)? Report findings @ -No old charts were reviewed Differential Diagnosis (chest pain, altered mental status, abdominal pain women, abdominal pain men, vaginal bleeding, weakness, fever, dyspnea, syncope, hea dache, dizziness, GI bleed, back pain, seizure, CVA, palpatations, mental health, musculoskeletal)? @ -Differential Fever: Pneumonia, viral URI, endocarditis, myocarditis, pericarditis, otitis, sinu sitis, peritonsillar Abscess, retropharyngeal Abscess, epiglottitis, peritonitis, appendicitis, Zohra cystitis, diverticulitis, hepatitis, colitis, UTI, PID, TOA, pyelonephritis, prostatitis, epididymitis, meningitis, encephalitis, pulmonary embolism, CVA, thyroid storm, pancreatitis, adrenal crisis, cavernous sinus thrombosis, this is not meant to be an all-inclusive list. EKG interpreted by me (3pts min.). @ -As above X-rays interpreted by me (1pt min.). @ -Chest x-ray shows no acute process CT interpreted by me (1pt min.). @ -None done U/S interpreted by me (1pt. min.). @ -None done What testing was considered but not performed or refused? (CT, X-rays, U/S, labs)? Why? @ -None What meds were considered but not given or refused? Why? @ -Considered additional lisinopril however patient blood pressure is improved Did you discuss the management of the patient with other professionals (professionals i.e. , PA, PER DIEM PHYSICAL THERAPIST ASSISTANT, lab, RT, psych nurse, social worker school, senior category manager, teacher, head correction officer, correctional case manager)? Give summary @ -No Was smoking cessation discussed for >3mins.? @ -No Was critical care preformed (if so, how long)? @ -No Were there social determinants of health that impacted care today? How? (Homelessness, low income, unemployed, alcoholism, drug addiction, transportatio n, low edu. Level, literacy, decrease access to med. care, residential, rehab)? @ -No Was there de-escalation of care discussed even if they declined (Discuss DNR or withdrawal of care, Hospice)? DNR status @ -No What co-morbidities impacted this encounter? (DM, HTN, Smoking, COPD, CAD, Cancer, CVA, ARF, Chemo, Hep., AIDS, mental health diagnosis, sleep apnea, morbid obesity)? @ -None Was patient admitted / discharged? Hospital course, mention meds given and route, prescriptions, significant lab abnormalities, going to OR and other pertinent info. @ -Patient blood pressure improved. Patient will be discharged with medications for COPD Undiagnosed new problem with uncertain prognosis? @ -No Drug Therapy requiring intensive monitoring for toxicity (Heparin, Nitro, Insulin, Cardizem)? @ -No Were any procedures done? @ -No Diagnosis/symptom? @ -COPD, hypertension Acute, or Chronic, or Acute on Chronic? @ -Acute on chronic, acute on chronic Uncomplicated (without systemic symptoms) or Complicated (systemic symptoms)? @ -Default Side effects of treatment? @ -No Exacerbation, Progression, or Severe Exacerbation? @ -No Poses a threat to life or bodily function? How? (Chest pain, [place], [place], pneumonia, PE, COPD, DKA, ARF, appy, cholecystitis, CVA, Diverticulitis, Homicidal, Suicidal, threat to staff... and all critical care pts) @ -No (Dipak Farr) - Lab Data Lab Results 12/04/23 12/04/23 12/04/23 Range/Units 16:11 19:09 20:05 WBC 12.0 H (3.8-10.6) k/uL RBC 4.92 (3.80-5.40) m/uL Hgb 14.9 (11.4-16.0) gm/dL Hct 44.6 (34.0-46.0) % MCV 90.5 (80.0-100.0) fL MCH 30.3 (25.0-35.0) pg MCHC 33.5 (31.0-37.0) g/dL RDW 12.7 (11.5-15.5) % Plt Count 221 (150-450) k/uL MPV 8.2 Neutrophils % 72 % Lymphocytes % 17 % Monocytes % 4 % Eosinophils % 5 % Basophils % 0 % Neutrophils # 8.7 H (1.3-7.7) k/uL Lymphocytes # 2.0 (1.0-4.8) k/uL Monocytes # 0.5 (0-1.0) k/uL Eosinophils # 0.5 (0-0.7) k/uL Basophils # 0.1 (0-0.2) k/uL Sodium 139 (137-145) mmol/L Potassium 4.1 (3.5-5.1) mmol/L Chloride 108 H (98-107) mmol/L Carbon Dioxide 22 (22-30) mmol/L Anion Gap 9 mmol/L BUN 14 (7-17) mg/dL Creatinine 0.68 (0.52-1.04) mg/dL Est GFR (CKD-EPI)AfAm >90 (>60 ml/min/1.73 sqM) Est GFR (CKD-EPI)NonAf >90 (>60 ml/min/1.73 sqM) Glucose 94 (74-99) mg/dL Calcium 9.9 (8.4-10.2) mg/dL Total Bilirubin 0.4 (0.2-1.3) mg/dL AST 26 (14-36) U/L ALT 19 (4-34) U/L Alkaline Phosphatase 137 H (38-126) U/L Total Protein 7.3 (6.3-8.2) g/dL Albumin 4.1 (3.5-5.0) g/dL Influenza Type A (PCR) Not Detected (Not Detectd) Influenza Type B (PCR) Not Detected (Not Detectd) RSV (PCR) Not Detected (Not Detectd) SARS-CoV-2 (PCR) Not Detected (Not Detectd) Disposition <Kelle Russo - Last Filed: 12/04/23 16:15> Is patient prescribed a controlled substance at d/c from ED?: No Time of Disposition: 20:58 <Dipak Farr - Last Filed: 12/04/23 20:59> Clinical Impression: Acute exacerbation of chronic obstructive pulmonary disease, Hypertension Disposition: HOME SELF-CARE Condition: Stable Instructions (If sedation given, give patient instructions): Upper Respiratory Infection (ED), Hypertension (ED) Additional Instructions: Please do follow-up with your primary care physician in the next 1 to 2 days for recheck. Return for difficulty breathing, uncontrolled fever, uncontrolled blood pressure, worsening symptoms or any other concerns. If blood pressure is greater than 190 systolic or 90 diastolic after 1 hour of medication, you may take an additional half dose of your lisinopril (5 mg) . This needs to be discussed with your doctor upon follow-up. Prescriptions have been sent to pharmacy Prescriptions: predniSONE [Deltasone] 20 mg PO BID #10 tab Azithromycin [Zithromax Z Pack] 250 mg PO DAILY #6 tab Referrals: Miguel Schmidt MD [Primary Care Provider] - 1-2 days
--- NOTE | 2023-12-04 16:36 | XR ---
EXAMINATION TYPE: XR chest 2V DATE OF EXAM: 12/04/2023 COMPARISON: 09/30/2021 INDICATION: Short of breath TECHNIQUE: Frontal and lateral views of the chest are obtained. FINDINGS: The heart size is normal. The pulmonary vasculature is normal. The lungs are clear. IMPRESSION: 1. No acute pulmonary process.
[2023-12-04] MEDS ORDERED: hydrALAZINE HCL 20 MG/ML 1 ML VIAL IVP STA (18:50)
[2023-12-04 19:30] LABS: Basophils # (A) 0.1 k/uL (0-0.2); Basophils % (A) 0 %; Eosinophils # (A) 0.5 k/uL (0-0.7); Eosinophils % (A) 5 %; HCT 44.6 % (34.0-46.0); HGB 14.9 gm/dL (11.4-16.0); Lymphocytes % (A) 17 %; MCH 30.3 pg (25.0-35.0); MCHC 33.5 g/dL (31.0-37.0); MCV 90.5 fL (80.0-100.0); Mean Platelet Volume 8.2; Monocytes # (A) 0.5 k/uL (0-1.0); Monocytes % (A) 4 %; Neutrophils # (A) 8.7 k/uL (1.3-7.7); Neutrophils % (A) 72 %; Platelet Count 221 k/uL (150-450); RBC 4.92 m/uL (3.80-5.40); RDW 12.7 % (11.5-15.5)
[2023-12-04 20:15] VITALS: RESP 18
[2023-12-04 20:49] LABS: ALT 19 U/L (4-34); AST 26 U/L (14-36); African American GFR (CKD) >90 (>60 ml/min/1.73 sqM); Albumin 4.1 g/dL (3.5-5.0); Alkaline Phosphatase 137 U/L (38-126); Anion Gap 9 mmol/L; Blood Urea Nitrogen 14 mg/dL (7-17); Calcium 9.9 mg/dL (8.4-10.2); Carbon Dioxide 22 mmol/L (22-30); Chloride 108 mmol/L (98-107); Glucose 94 mg/dL (74-99); Non-African American GFR(CKD) >90 (>60 ml/min/1.73 sqM); Potassium 4.1 mmol/L (3.5-5.1); Sodium 139 mmol/L (137-145); Total Bilirubin 0.4 mg/dL (0.2-1.3); Total Protein 7.3 g/dL (6.3-8.2)
[2023-12-04 21:06] VITALS: BP 169/82; PULSE 92
[2023-12-04 21:31] VITALS: TEMP 98.6
== END 2023-12-04 21:25 | disposition home or self-care (01) ==
LOC: EC 15:54
DX: J44.1 Chronic obstructive pulmonary disease with (acute) exacerbation (principal); I10 Essential (primary) hypertension; F17.200 Nicotine dependence, unspecified, uncomplicated; Z20.822 Contact with and (suspected) exposure to COVID-19; Z79.51 Long term (current) use of inhaled steroids; Z79.899 Other long term (current) drug therapy
CPT/HCPCS: 36415; 80053; 85025; 87636; 71046; 99284; 96374; J0360

== ENCOUNTER 2024-08-09 13:01 | Observation (INO) | payer MEDICARE, OTHER ==
[2024-08-09 13:47] LABS: Basophils % (A) 0 %; Eosinophils # (A) 0.2 k/uL (0-0.7); Eosinophils % (A) 3 %; HGB 14.2 gm/dL (11.4-16.0); Lymphocytes % (A) 14 %; MCH 29.9 pg (25.0-35.0); MCHC 33.1 g/dL (31.0-37.0); MCV 90.4 fL (80.0-100.0); Mean Platelet Volume 7.4; Monocytes # (A) 0.4 k/uL (0-1.0); Monocytes % (A) 5 %; Neutrophils # (A) 5.6 k/uL (1.3-7.7); Neutrophils % (A) 76 %; Platelet Count 236 k/uL (150-450); RBC 4.76 m/uL (3.80-5.40); WBC 7.4 k/uL (3.8-10.6)
[2024-08-09 13:57] LABS: ALT 19 U/L (4-34); AST 27 U/L (14-36); African American GFR (CKD) 86 (>60 ml/min/1.73 sqM); Albumin 4.2 g/dL (3.5-5.0); Alkaline Phosphatase 103 U/L (38-126); Anion Gap 5 mmol/L; Blood Urea Nitrogen 12 mg/dL (7-17); Calcium 9.6 mg/dL (8.4-10.2); Carbon Dioxide 29 mmol/L (22-30); Chloride 106 mmol/L (98-107); Glucose 97 mg/dL (74-99); Magnesium 2.2 mg/dL (1.6-2.3); Non-African American GFR(CKD) 75 (>60 ml/min/1.73 sqM); Potassium 3.4 mmol/L (3.5-5.1); Sodium 140 mmol/L (137-145); Total Bilirubin 0.6 mg/dL (0.2-1.3); Total Protein 7.4 g/dL (6.3-8.2)
--- NOTE | 2024-08-09 14:03 | XR ---
EXAMINATION TYPE: XR chest 2V DATE OF EXAM: 08/09/2024 COMPARISON: 12/04/2023 INDICATION: Chest pain and weakness TECHNIQUE: Frontal and lateral views of the chest are obtained. FINDINGS: The heart size is normal. The pulmonary vasculature is normal. The lungs are clear. IMPRESSION: 1. No acute pulmonary process. [facility] Jamal Viveros, Workstation: [facility], 08/09/2024 2:01 PM
[2024-08-09 14:06] LABS: INR 0.9 (<1.2); NT-Pro-B-Type Natriuretic Pept 141 pg/mL; Partial Thromboplastin Time 24.3 sec (22.0-30.0); Prothrombin Time 10.2 sec (10.0-12.5)
--- NOTE | 2024-08-09 14:45 | ED ---
Weakness HPI - General Chief complaint: Weakness Stated complaint: Dizziness/Chest Pain Time Seen by Provider: 08/09/24 13:20 Source: patient, RN notes reviewed Mode of arrival: ambulatory Limitations: no limitations - History of Present Illness Initial comments: 63-year-old female presents emergency department chief complaint of chest pain, shortness of breath, weakness. Patient states does not feel well the last few days. She states that she noticed chest tightness and she states she does have a history of COPD does not feel related. She was told recently she may have an enlarged heart but is waiting for her results. Patient had no prior cardiac stents. Patient does have a history of hypertension on medications denies diabetes or hyperlipidemia. Denies any leg pain leg swelling no history of DVT or PE - Related Data Home Medications Medication Instructions Recorded Confirmed Albuterol Inhaler [Ventolin Hfa 2 puff INHALATION RT-Q6H PRN 11/21/20 11/30/20 Inhaler] Fluticasone Propion/Salmeterol 1 puff INHALATION RT-BID@0900,1700 11/21/20 11/30/20 [Fluticasone-Salmeterol 500-50] Rosuvastatin [Crestor] 10 mg PO HS 08/09/24 08/09/24 lisinopriL [Zestril] 30 mg PO DAILY 08/09/24 08/09/24 Allergies Allergy/AdvReac Type Severity Reaction Status Date / Time No Known Allergies Allergy Verified 08/09/24 15:53 Review of Systems ROS Statement: Those systems with pertinent positive or pertinent negative responses have been documented in the HPI. ROS Other: All systems not noted in ROS Statement are negative. Past Medical History Past Medical History: COPD, Rheumatoid Arthritis (RA) Additional Past Medical History / Comment(s): hemorrhoids, KIDNEY STONES. cardiac myopathy??? History of Any Multi-Drug Resistant Organisms: None Reported Past Surgical History: Adenoidectomy, Tonsillectomy, Tubal Ligation Additional Past Surgical History / Comment(s): LT URETEROSCOPY WITH STENT PLACEMENT Past Anesthesia/Blood Transfusion Reactions: No Reported Reaction Past Psychological History: No Psychological Hx Reported Smoking Status: Current every day smoker Past Alcohol Use History: None Reported Past Drug Use History: None Reported - Past Family History Father Family Medical History: No Reported History General Exam Limitations: no limitations General appearance: alert, in no apparent distress Head exam: Present: atraumatic, normocephalic, normal inspection Eye exam: Present: normal appearance, PERRL, EOMI. Absent: scleral icterus, conjunctival injection, periorbital swelling ENT exam: Present: normal exam, mucous membranes moist Neck exam: Present: normal inspection, full ROM. Absent: tenderness, meningismus, lymphadenopathy Respiratory exam: Present: wheezes (Minimal). Absent: respiratory distress, rales, rhonchi, stridor Cardiovascular Exam: Present: regular rate, normal rhythm, normal heart sounds. Absent: systolic murmur, diastolic murmur, rubs, gallop, clicks GI/Abdominal exam: Present: soft, normal bowel sounds. Absent: distended, tenderness, guarding, rebound, rigid Extremities exam: Absent: pedal edema Course Vital Signs 08/09/24 08/09/24 08/09/24 13:15 13:18 14:18 Temperature 97.6 F Pulse Rate 82 76 73 Respiratory 18 18 18 Rate Blood Pressure 180/98 179/83 183/95 O2 Sat by Pulse 96 99 98 Oximetry EKG Findings - EKG Comments: EKG Findings:: EKG performed at 13: 29 sinus rhythm rate of 75 [place] 198 QRS 81 QT/QTc 381/409 - EKG Results: EKG: interpreted by ESTHER Medical Decision Making - Medical Decision Making Was pt. sent in by a medical professional or institution (, PA, PRE BILLING SPECIALIST, urgent care, hospital, or retirement...) When possible be specific @ -No Did you speak to anyone other than the patient for history (EMS, parent, family, police, friend...)? What history was obtained from this source @ -No Did you review nursing and triage notes (agree or disagree)? Why? @ -I reviewed and agree with nursing and triage notes Were old charts reviewed (outside hosp., previous admission, EMS record, old EKG, old radiological studies, urgent care reports/EKG's, retirement records)? Report findings @ -No old charts were reviewed Differential Diagnosis (chest pain, altered mental status, abdominal pain women, abdominal pain men, vaginal bleeding, weakness, fever, dyspnea, syncope, headache, dizziness, GI bleed, back pain, seizure, CVA, palpatations, mental health, musculoskeletal)? @ -Differential Chest Pain: Stable Angina, Unstable Angina, STEMI, NSTEMI Aortic Dissection, Pneumothorax, Musculoskeletal, Esophageal Spasm GERD, Cholecystitis, Pancreatitis, Zoster, this is not meant to be an all-inclusive list. EKG interpreted by me (3pts min.). @ -As above X-rays interpreted by me (1pt min.). @ -Chest x-ray shows no acute cardiopulmonary process CT interpreted by me (1pt min.). @ -CTA of the chest negative for acute PE no acute cardiopulmonary process U/S interpreted by me (1pt. min.). @ -None done What testing was considered but not performed or refused? (CT, X-rays, U/S, labs)? Why? @ -None What meds were considered but not given or refused? Why? @ -None Did you discuss the management of the patient with other professionals (professionals i.e. , PA, PRE BILLING SPECIALIST, lab, RT, psych nurse, manager social work, pumping supervisor, te acher, interface control officer, family preservation caseworker)? Give summary @ -Dr. Eckert for admission Was smoking cessation discussed for >3mins.? @ -No Was critical care preformed (if so, how long)? @ -No Were there social determinants of health that impacted care today? How? (Homelessness, low income, unemployed, alcoholism, drug addiction, transportation, low edu. Level, literacy, decrease access to med. care, custodial, rehab)? @ -No Was there de-escalation of care discussed even if they declined (Discuss DNR or withdrawal of care, Hospice)? DNR status @ -No What co-morbidities impacted this encounter? (DM, HTN, Smoking, COPD, CAD, Cancer, CVA, ARF, Chemo, Hep., AIDS, mental health diagnosis, sleep apnea, morbid obesity)? @ -Hypertension Was patient admitted / discharged? Hospital course, mention meds given and route, prescriptions, significant lab abnormalities, going to OR and other pertinent info. @ -Admitted patient presented for chest pain initial troponin negative EKG did not reveal any acute changes negative viral swab. Patient is currently being worked up for cardiac disease does have risk factors. Patient will be admitted for cardiac rule out Undiagnosed new problem with uncertain prognosis? @ -No Drug Therapy requiring intensive monitoring for toxicity (Heparin, Nitro, Insulin, Cardizem)? @ -No Were any procedures done? @ -No Diagnosis/symptom? @ -[Chest pain Acute, or Chronic, or Acute on Chronic? @ -Acute Uncomplicated (without systemic symptoms) or Complicated (systemic symptoms)? @ -Uncomplicated Side effects of treatment? @ -No Exacerbation, Progression, or Severe Exacerbation? @ -No Poses a threat to life or bodily function? How? (Chest pain, [place], [place], pneumonia, PE, COPD, DKA, ARF, appy, cholecystitis, CVA, Diverticulitis, Homicidal, Suicidal, threat to staff... and all critical care pts) @ -No - Lab Data Result diagrams: 08/09/24 13:22 08/09/24 13:22 Lab Results 08/09/24 08/09/24 08/09/24 Range/Units 13:22 13:22 13:22 WBC 7.4 (3.8-10.6) k/uL RBC 4.76 (3.80-5.40) m/uL Hgb 14.2 (11.4-16.0) gm/dL Hct 43.0 (34.0-46.0) % MCV 90.4 (80.0-100.0) fL MCH 29.9 (25.0-35.0) pg MCHC 33.1 (31.0-37.0) g/dL RDW 13.0 (11.5-15.5) % Plt Count 236 (150-450) k/uL MPV 7.4 Neutrophils % 76 % Lymphocytes % 14 % Monocytes % 5 % Eosinophils % 3 % Basophils % 0 % Neutrophils # 5.6 (1.3-7.7) k/uL Lymphocytes # 1.0 (1.0-4.8) k/uL Monocytes # 0.4 (0-1.0) k/uL Eosinophils # 0.2 (0-0.7) k/uL Basophils # 0.0 (0-0.2) k/uL PT 10.2 (10.0-12.5) sec INR 0.9 (<1.2) APTT 24.3 (22.0-30.0) sec D-Dimer 1.06 H (<0.60) mg/L FEU Sodium 140 (137-145) mmol/L Potassium 3.4 L (3.5-5.1) mmol/L Chloride 106 (98-107) mmol/L Carbon Dioxide 29 (22-30) mmol/L Anion Gap 5 mmol/L BUN 12 (7-17) mg/dL Creatinine 0.83 (0.52-1.04) mg/dL Est GFR (CKD-EPI)AfAm 86 (>60 ml/min/1.73 sqM) Est GFR (CKD-EPI)NonAf 75 (>60 ml/min/1.73 sqM) Glucose 97 (74-99) mg/dL Plasma Lactic Acid Uzair (0.7-2.0) mmol/L Calcium 9.6 (8.4-10.2) mg/dL Magnesium 2.2 (1.6-2.3) mg/dL Total Bilirubin 0.6 (0.2-1.3) mg/dL AST 27 (14-36) U/L ALT 19 (4-34) U/L Alkaline Phosphatase 103 (38-126) U/L Troponin I (0.000-0.034) ng/mL NT-Pro-B Natriuret Pep 141 pg/mL Total Protein 7.4 (6.3-8.2) g/dL Albumin 4.2 (3.5-5.0) g/dL Influenza Type A (PCR) (Not Detectd) Influenza Type B (PCR) (Not Detectd) RSV (PCR) (Not Detectd) SARS-CoV-2 (PCR) (Not Detectd) 08/09/24 08/09/24 08/09/24 Range/Units 13:22 13:22 13:47 WBC (3.8-10.6) k/uL RBC (3.80-5.40) m/uL Hgb (11.4-16.0) gm/dL Hct (34.0-46.0) % MCV (80.0-100.0) fL MCH (25.0-35.0) pg MCHC (31.0-37.0) g/dL RDW (11.5-15.5) % Plt Count (150-450) k/uL MPV Neutrophils % % Lymphocytes % % Monocytes % % Eosinophils % % Basophils % % Neutrophils # (1.3-7.7) k/uL Lymphocytes # (1.0-4.8) k/uL Monocytes # (0-1.0) k/uL Eosinophils # (0-0.7) k/uL Basophils # (0-0.2) k/uL PT (10.0-12.5) sec INR (<1.2) APTT (22.0-30.0) sec D-Dimer (<0.60) mg/L FEU Sodium (137-145) mmol/L Potassium (3.5-5.1) mmol/L Chloride (98-107) mmol/L Carbon Dioxide (22-30) mmol/L Anion Gap mmol/L BUN (7-17) mg/dL Creatinine (0.52-1.04) mg/dL Est GFR (CKD-EPI)AfAm (>60 ml/min/1.73 sqM) Est GFR (CKD-EPI)NonAf (>60 ml/min/1.73 sqM) Glucose (74-99) mg/dL Plasma Lactic Acid Uzair 1.3 (0.7-2.0) mmol/L Calcium (8.4-10.2) mg/dL Magnesium (1.6-2.3) mg/dL Total Bilirubin (0.2-1.3) mg/dL AST (14-36) U/L ALT (4-34) U/L Alkaline Phosphatase (38-126) U/L Troponin I <0.012 (0.000-0.034) ng/mL NT-Pro-B Natriuret Pep pg/mL Total Protein (6.3-8.2) g/dL Albumin (3.5-5.0) g/dL Influenza Type A (PCR) Not Detected (Not Detectd) Influenza Type B (PCR) Not Detected (Not Detectd) RSV (PCR) Not Detected (Not Detectd) SARS-CoV-2 (PCR) Not Detected (Not Detectd) Disposition Clinical Impression: Chest pain, Weakness Disposition: ADMITTED IP TO THIS HOSP Condition: Fair Referrals: Miguel Schmidt MD [Primary Care Provider] - 1-2 days Time of Disposition: 15:40
--- NOTE | 2024-08-09 15:00 | CT ---
EXAMINATION TYPE: CT chest angio for PE CT DLP: 273.7 mGycm, Automated exposure control for dose reduction was used. DATE OF EXAM: 08/09/2024 2:47 PM COMPARISON: 06/30/2020 CLINICAL INDICATION: Female, 63 years old with history of pain; chest pain, htn TECHNIQUE/CONTRAST: CTA scan of the thorax is performed with IV Contrast, patient injected with 100 ml mL of Isovue 370, MIP images are created and reviewed these are created on a separate workstation.. FINDINGS: Pulmonary Artery: There is no evidence for a filling defect within the pulmonary vasculature to sugge st acute pulmonary embolism. The pulmonary artery is of normal size. Lungs/Pleura: No evidence of focal consolidation, pleural effusion or pneumothorax. Lingula streaky p robable atelectasis present. Airway: Large airways are patent. Heart: Heart is within normal limits for size. Vasculature: No evidence of aortic aneurysm. Mediastinum: No gross evidence of adenopathy. Musculoskeletal: No acute osseous abnormalities Soft Tissues/lymph nodes: Unremarkable. Lower neck: No significant findings. Upper Abdomen: No significant findings. IMPRESSION: 1. No evidence of pulmonary embolism. [facility], , 08/09/2024 2:58 PM
[2024-08-09] MEDS: ASPIRIN 81 MG PO STA (15:27)
[2024-08-09] MEDS: NITROGLYCERIN SL TABS 0.4 MG TAB SUBLINGUAL STA (15:28)
[2024-08-09] MEDS ORDERED: NITROGLYCERIN SL TABS 0.4 MG TAB SUBLINGUAL PRN (15:40)
[2024-08-09] MEDS ORDERED: ACETAMINOPHEN TAB 325 MG TAB PO PRN (17:17)
[2024-08-09] MEDS ORDERED: ONDANSETRON 4 MG/2 ML VIAL IVP PRN (17:17)
[2024-08-09] MEDS ORDERED: MELATONIN 3 MG TABLET PO PRN (17:17)
[2024-08-09] MEDS ORDERED: LACTULOSE 20 GM/30 ML CUP PO PRN (17:17)
[2024-08-09] MEDS ORDERED: ALPRAZolam 0.25 MG TAB PO PRN (17:17)
[2024-08-09] MEDS ORDERED: CALCIUM CARBONATE 500 MG CHEWABLE PO PRN (17:17)
[2024-08-09] MEDS ORDERED: ALBUTEROL HFA INHALER INHALATION PRN (17:17)
[2024-08-09] MEDS ORDERED: NALOXONE 0.4 MG/ML 1 ML VIAL IV PRN (17:17)
[2024-08-09] MEDS: ENOXAPARIN 40 MG/0.4 ML SYRINGE SQ SCH (17:57)
[2024-08-09] MEDS: SYMBICORT 160-4.5 MCG INHALER INHALATION SCH (20:00)
[2024-08-09] MEDS: LORATADINE 10 MG TAB PO SCH (20:39)
[2024-08-09] MEDS: ATORVASTATIN 20 MG TAB PO SCH (20:39)
[2024-08-10] MEDS: lisinopriL 10 MG TAB PO SCH (08:04)
[2024-08-10] MEDS: ASPIRIN 325 MG TAB PO SCH (08:04)
--- NOTE | 2024-08-10 08:07 | CA ---
Transthoracic Echo Report Name: Natalie Wray Age: 63 Gender: F : 1960 Exam Date: 08/09/2024 15:48 Exam Location: [facility] Ht (in): 62 Wt (lb): 150 Ordering Physician: Hermilo Calhoun PAC Attending/Referring Phys: SEA, [employer] Analyst Amanda Nicole RDCS Procedure CPT: Indications: Chest Pain Cardiac Hx: smoker Technical Quality: Good Contrast 1: Total Dose (mL): Contrast 2: Total Dose (mL): MEASUREMENTS (Male / Female) Normal Values 2D ECHO LV Diastolic Diameter PLAX 3.9 cm 4.2 - 5.9 / 3.9 - 5.3 cm LV Systolic Diameter PLAX 2.5 cm IVS Diastolic Thickness 1.1 cm 0.6 - 1.0 / 0.6 - 0.9 cm LVPW Diastolic Thickness 1.1 cm 0.6 - 1.0 / 0.6 - 0.9 cm LV Relative Wall Thickness 0.6 RV Internal Dim ED PLAX 2.9 cm LA Systolic Diameter LX 2.9 cm 3.0 - 4.0 / 2.7 - 3.8 cm LV Diastolic Volume MOD BP 44.5 cm??? 67 - 155 / 56 - 104 cm??? LV Systolic Volume MOD BP 15.2 cm??? - 58 / 19 - 49 cm??? LV Ejection Fraction MOD BP 65.9 % >= 55 % LV Cardiac Index MOD BP 1194.6 cm???/min???m??? LV Diastolic Volume MOD 4C 49.1 cm??? LV Systolic Volume MOD 4C 12.5 cm??? LV Ejection Fraction MOD 4C 74.6 % LV Cardiac Index MOD 4C 1491.7 cm???/min???m??? LV Diastolic Length 4C 6.9 cm LV Systolic Length 4C 4.9 cm LV Diastolic Volume MOD 2C 41.7 cm??? LV Systolic Volume MOD 2C 14.5 cm??? LV Ejection Fraction MOD 2C 65.3 % LV Cardiac Index MOD 2C 1109.0 cm???/min???m??? LV Diastolic Length 2C 6.8 cm LV Systolic Length 2C 6.6 cm LA Volume 31.0 cm??? 18 - 58 / 22 - 52 cm??? LA Volume Index 17.8 cm???/m??? 16 - 28 cm???/m??? M-MODE Aortic Root Diameter MM 2.3 cm AV Cusp Separation MM 1.9 cm DOPPLER AV Peak Velocity 116.6 cm/s AV Peak Gradient 5.4 mmHg FINDINGS Left Ventricle Left ventricular ejection fraction is estimated at 55-60 %. Left ventricular cavity size normal. Mildly increased septal wall thickness. Mildly increased posterior wall thickness. Normal left ventricular wall motion. Right Ventricle Normal right ventricular size. Unable to estimate the right ventricular systolic pressure. Right Atrium Normal right atrial size. No right atrial thrombus or mass seen. Left Atrium Normal left atrial size. No left atrial thrombus or mass present. Mitral Valve Structurally normal mitral valve. No mitral stenosis, regurgitation or prolapse. Aortic Valve Trileaflet aortic valve. No aortic valve stenosis or regurgitation. Tricuspid Valve Structurally normal tricuspid valve. No tricuspid stenosis, regurgitation or prolapse. Pulmonic Valve Structurally normal pulmonic valve. No pulmonic regurgitation. Pericardium No pericardial or pleural effusion. Aorta Normal size aortic root and proximal ascending aorta. CONCLUSIONS Left ventricular ejection fraction 55-60% Mild increased left ventricular wall thickness No mitral regurgitation No tricuspid regurgitation No pericardial effusion Previewed by: Dr. Carlos A Shaikh DO (Electronically Signed) Final Date: 10 August 2024 08:06
[2024-08-10 08:25] VITALS: TEMP 98.1
[2024-08-10] MEDS: lisinopriL 10 MG TAB PO STA (09:51)
[2024-08-10 10:11] VITALS: BP 157/83; RESP 15
[2024-08-10 10:11] LABS: Chol/HDL Ratio 3.08 Ratio; LDL Cholesterol,Calculated 107.5 mg/dL (0.0-131.0)
--- NOTE | 2024-08-10 11:53 | P.CRDCN ---
History of Present Illness Consult date: 08/10/24 Consult reason: chest pain History of present illness: This is a 63-year-old female with no previous cardiac history and does not follow with a antisqueak chalker. Patient has a past medical history of COPD, sinus allergies and hypertension. Patient gives history that over the past 2 days she was having some tightness in her chest, generally not feeling well, lightheaded, headache. Patient also has had some nausea and diarrhea for a couple of days including yesterday. She denies any abdominal pain. No shortness of breath. She is an active smoker. She denies alcohol abuse or drug use. Chest pain is a mid section of her chest that felt tight and happening at random times. Pain is not related to activity. Pain is lasting 5 to 10 minutes and then goes away on its own. She states that her blood pressure is not usually controlled and runs 150-180 systolic at home. On presentation blood pressure was 180/98. Patient states that she is feeling fine now. She did receive nitroglycerin yesterday which improved her blood pressure. 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 Blood pressure now 136/74, heart rate 77, pulse ox 92%. Orthostatic vital signs negative. Discussed with patient option of stress test tomorrow and she declined would prefer to follow-up outpatient. EKG: Sinus rhythm with no acute ST-T wave changes. Chest x-ray: No acute process CTA of the chest negative for pulmonary embolism Echocardiogram EF 55 to 60% Laboratory studies: D-dimer 1.06, troponin negative x 3, BNP 141. Potassium 3.4, creatinine 0.83. CBC within normal limits. Influenza A, influenza B, RSV, COVID-19 not detected. Home cardiac medications: Lisinopril 30 mg daily, Crestor 10 mg at bedtime. Review Of Systems: At the time of my exam: CONSTITUTIONAL: Denies fever or chills. HEENT: Denies blurred vision, vision changes, or eye pain. Denies hemoptysis CARDIOVASCULAR: Denies chest pain. Denies orthopnea. Denies PND. Denies palpitations RESPIRATORY: Denies shortness of breath. GASTROINTESTINAL: Denies abdominal pain. Denies nausea or vomiting. HEMATOLOGIC: Denies bleeding disorders. GENITOURINARY: Denies any blood in urine. SKIN: Denies puritis. Denies rash. Physical examination: Gen: This is [63-year-old female in no acute distress] VS: reviewed HEENT: Head is atraumatic, normocephalic. Pupils equal, round. Sclerae is anicteric. NECK: Supple. No JVD. LUNGS: Clear to auscultation. No wheezes or rhonchi. No intercostal retractions. HEART: Regular rate and rhythm. No murmur. ABDOMEN: Soft No tenderness. EXTREMITIES: No pedal edema. No calf tenderness. NEUROLOGICAL: Patient is awake, alert and oriented x3. Assessment: Atypical chest pain, acute coronary syndrome ruled out Uncontrolled hypertension COPD Tobacco use and dependence Plan: Resume patient's home cardiac medications Continue patient on aspirin 81 mg daily at discharge Increase lisinopril to 40 mg daily Patient is cleared for discharge as she declined stress test for tomorrow. She may follow-up in the office with Dr. Shaikh in 1 week. Thank you kindly for this consultation. Nurse practitioner note has been reviewed, I agree with documented findings and plan of care. Patient was seen and examined. Past Medical History Past Medical History: COPD, Rheumatoid Arthritis (RA) Additional Past Medical History / Comment(s): hemorrhoids, KIDNEY STONES. cardiac myopathy??? History of Any Multi-Drug Resistant Organisms: None Reported Past Surgical History: Adenoidectomy, Tonsillectomy, Tubal Ligation Additional Past Surgical History / Comment(s): LT URETEROSCOPY WITH STENT PLACEMENT Past Anesthesia/Blood Transfusion Reactions: No Reported Reaction Past Psychological History: No Psychological Hx Reported Smoking Status: Current every day smoker Past Alcohol Use History: None Reported Past Drug Use History: None Reported - Past Family History Father Family Medical History: No Reported History Medications and Allergies Home Medications Medication Instructions Recorded Confirmed Type Albuterol Inhaler [Ventolin Hfa 1 puff INHALATION RT-Q6H PRN 11/21/20 08/09/24 History Inhaler] Fluticasone Propion/Salmeterol 1 puff INHALATION RT-BID 11/21/20 08/09/24 History [Fluticasone-Salmeterol 500-50] Rosuvastatin [Crestor] 10 mg PO HS 08/09/24 08/09/24 History lisinopriL [Zestril] 30 mg PO DAILY 08/09/24 08/09/24 History Allergies Allergy/AdvReac Type Severity Reaction Status Date / Time No Known Allergies Allergy Verified 08/09/24 15:53 Physical Exam Vitals: Vital Signs Temp Pulse Pulse Resp BP BP Pulse Ox 08/10/24 08:55 77 14 08/10/24 07:00 98.1 F 77 14 136/74 92 L 08/10/24 02:26 98.2 F 73 16 124/72 96 08/09/24 18:13 97.9 F 80 17 152/80 94 L 08/09/24 17:17 97.4 F L 88 18 137/76 95 08/09/24 14:18 73 18 183/95 98 08/09/24 13:18 76 18 179/83 99 08/09/24 13:15 97.6 F 82 18 180/98 96 Intake and Output 08/09/24 08/10/24 08/10/24 22:59 06:59 14:59 Other: # Voids 1 3 Weight 68.039 kg Results 08/09/24 13:22 08/09/24 13:22 Cardiac Enzymes 08/09/24 08/09/24 08/09/24 Range/Units 13:22 13:22 17:00 AST 27 (14-36) U/L Troponin I <0.012 <0.012 (0.000-0.034) ng/mL 08/09/24 Range/Units 20:15 AST (14-36) U/L Troponin I <0.012 (0.000-0.034) ng/mL Coagulation 08/09/24 Range/Units 13:22 PT 10.2 (10.0-12.5) sec APTT 24.3 (22.0-30.0) sec CBC 08/09/24 Range/Units 13:22 WBC 7.4 (3.8-10.6) k/uL RBC 4.76 (3.80-5.40) m/uL Hgb 14.2 (11.4-16.0) gm/dL Hct 43.0 (34.0-46.0) % Plt Count 236 (150-450) k/uL Comprehensive Metabolic Panel 08/09/24 Range/Units 13:22 Sodium 140 (137-145) mmol/L Potassium 3.4 L (3.5-5.1) mmol/L Chloride 106 (98-107) mmol/L Carbon Dioxide 29 (22-30) mmol/L BUN 12 (7-17) mg/dL Creatinine 0.83 (0.52-1.04) mg/dL Glucose 97 (74-99) mg/dL Calcium 9.6 (8.4-10.2) mg/dL AST 27 (14-36) U/L ALT 19 (4-34) U/L Alkaline Phosphatase 103 (38-126) U/L Total Protein 7.4 (6.3-8.2) g/dL Albumin 4.2 (3.5-5.0) g/dL Current Medications Generic Name Dose Route Start Last Admin Trade Name Freq PRN Reason Stop Dose Admin Acetaminophen 650 mg 08/09/24 17:17 Acetaminophen Tab 325 Mg Tab PO Q6HR PRN Mild Pain or Fever > 100.5 Albuterol Sulfate 1 puff 08/09/24 17:17 Albuterol Hfa Inhaler INHALATION RT-Q6H PRN Shortness Of Breath Alprazolam 0.25 mg 08/09/24 17:17 Alprazolam 0.25 Mg Tab PO Q6HR PRN Anxiety Aspirin 325 mg 08/10/24 09:00 08/10/24 08:04 Aspirin 325 Mg Tab PO 325 mg DAILY ABHISHEK Administration Atorvastatin Calcium 20 mg 08/09/24 21:00 08/09/24 20:39 Atorvastatin 20 Mg Tab PO 20 mg HS ABHISHEK Administration Budesonide/Formoterol Fumarate 2 puff 08/09/24 20:00 08/10/24 08:43 Symbicort 160-4.5 Mcg Inhaler INHALATION 2 puff RT-BID ABHISHEK Administration Calcium Carbonate/Glycine 1,000 mg 08/09/24 17:17 Calcium Carbonate 500 Mg Chewable PO Q4HR PRN Dyspepsia Enoxaparin Sodium 40 mg 08/09/24 17:30 08/10/24 07:56 Enoxaparin 40 Mg/0.4 Ml Syringe SQ Not Given DAILY ABHISHEK Lactulose 20 gm 08/09/24 17:17 Lactulose 20 Gm/30 Ml Cup PO DAILY PRN Constipation Lisinopril 30 mg 08/10/24 09:00 08/10/24 08:04 Lisinopril 10 Mg Tab PO 30 mg DAILY ABHISHEK Administration Loratadine 5 mg 08/09/24 21:00 08/10/24 08:05 Loratadine 10 Mg Tab PO 5 mg Q12HR ABHISHEK Administration Melatonin 3 mg 08/09/24 17:17 Melatonin 3 Mg Tablet PO HS PRN Insomnia Naloxone HCl 0.2 mg 08/09/24 17:17 Naloxone 0.4 Mg/Ml 1 Ml Vial IV Q2M PRN Opioid Reversal Nitroglycerin 0.4 mg 08/09/24 15:40 Nitroglycerin Sl Tabs 0.4 Mg Tab SUBLINGUAL Q5M PRN Chest Pain Ondansetron HCl 4 mg 08/09/24 17:17 Ondansetron 4 Mg/2 Ml Vial IVP Q8HR PRN Nausea And Vomiting Intake and Output 08/09/24 08/10/24 08/10/24 22:59 06:59 14:59 Other: # Voids 1 3 Weight 68.039 kg 08/09/24 13:22 08/09/24 13:22
[2024-08-10 13:42] VITALS: PULSE 77
--- NOTE | 2024-08-10 21:11 | P.HPIM ---
History of Present Illness H&P Date: 08/10/24 Chief Complaint: Chest pressure This is a pleasant 63-year-old patient who follows with Dr. Scmhidt. Chronic stable medical conditions includes COPD, rheumatoid arthritis, kidney stones, and is a smoker. For few days patient been having lower chest pressure. Its present on and off. Not really related to activity. Sometimes accompanied for last 2 days by dizzi ness and lightheadedness. No perspiration. No radiation. Patient is consistently constantly congested with cough and clear sputum. Which is rather chronic. Being a smoker. Finally decided to come in for the same. Patient is otherwise fairly active. Denies any prior cardiac history Review of systems: GEN.: None EYES: None HEENT: Stuffy nose NECK: None RESPIRATORY: Baseline some shortness of breath CARDIOVASCULAR: [As above, no edema GASTROINTESTINAL: None GENITOURINARY: None MUSCULOSKELETAL: Some joint pains e LYMPHATICS: None HEMATOLOGICAL: None PSYCHIATRY: None NEUROLOGICAL: None Social history: . Smokes a pack a day for many years. Works at [employer] Physical examination: VITAL SIGNS: 98.1, 77, 14, 136 Noble 74, 92% room air GENERAL: BMI 27.4, sitting at edge of bed awake not in distress. Congested appearing. EYES: Pupils equal. Conjunctiva elie l. HEENT: External appearance of nose and ears normal, oral cavity grossly normal. NECK: JVD not raised; masses not palpable. HEART: First and second heart sounds are normal; no edema. LUNGS: Respiratory rate increased, decreased breath sounds. ABDOMEN: Soft, nontender, liver spleen not palpable, no masses palpable. PSYCH: Alert and oriented x3; mood and affect eile l. MUSCULOSKELETAL:No Clubbing/cyanosis;muscles-grossly intact NEUROLOGICAL: Cranial nerves grossly intact; no facial asymmetry, power and sensation grossly intact. LYMPHATICS: No lymph nodes palpable in the axilla and neck INVESTIGATIONS, reviewed in the clinical context: August 09, 2024: White count 7.4 hemoglobin 14.2 platelets 236 sodium 140 potassium 3.4 creatinine 0.83 Troponin I less than 0.012 x 3 LDL 107.5 Influenza type A, type B, RSV, COVID-19: Not detected EKG tracing personally reviewed by me-normal sinus rhythm. Some ST segment depression in inferolateral leads. Chest x-ray film personally reviewed by me-emphysema CT chest angio for PE: Negative for PE Assessment plan: -Anterior chest wall pain. Possible unstable angina. Cardiac risk factors include smoking, postmenopausal, essential hypertension, hyperlipidemia. Troponins negative. EKG with some ST segment depression in inferolateral leads. Telemetry. Cardiology consulted. -COPD in a current smoker Fluticasone Salmeterol Inhaler. DuoNeb -Chronic nicotine dependence cigarette smoker Patient counseled -Essential hypertension Zestril -Hyperlipidemia Crestor -Chronic allergic rhinitis Care was discussed with the patient. Home medications resumed. Telemetry. Cardiology consulted. Past Medical History Past Medical History: COPD, Rheumatoid Arthritis (RA) Additional Past Medical History / Comment(s): hemorrhoids, KIDNEY STONES. cardiac myopathy??? History of Any Multi-Drug Resistant Organisms: None Reported Past Surgical History: Adenoidectomy, Tonsillectomy, Tubal Ligation Additional Past Surgical History / Comment(s): LT URETEROSCOPY WITH STENT PLACEMENT Past Anesthesia/Blood Transfusion Reactions: No Reported Reaction Past Psychological History: No Psychological Hx Reported Smoking Status: Current every day smoker Past Alcohol Use History: None Reported Past Drug Use History: None Reported - Past Family History Father Family Medical History: No Reported History Medications and Allergies Home Medications Medication Instructions Recorded Confirmed Type Albuterol Inhaler [Ventolin Hfa 1 puff INHALATION RT-Q6H PRN 11/21/20 08/09/24 History Inhaler] Fluticasone Propion/Salmeterol 1 puff INHALATION RT-BID 11/21/20 08/09/24 History [Fluticasone-Salmeterol 500-50] Rosuvastatin [Crestor] 10 mg PO HS 08/09/24 08/09/24 History lisinopriL [Zestril] 30 mg PO DAILY 08/09/24 08/09/24 History Aspirin 81 mg PO DAILY tab 08/10/24 Rx Ipratropium-Albuterol Nebulize 3 ml INHALATION TID PRN #90 ml 08/10/24 Rx [Duoneb 0.5 mg-3 mg/3 ml Soln] Nitroglycerin Sl Tabs [Nitrostat] 0.4 mg SUBLINGUAL Q5M PRN #30 tab 08/10/24 Rx Allergies Allergy/AdvReac Type Severity Reaction Status Date / Time No Known Allergies Allergy Verified 08/09/24 15:53 Physical Exam Vitals: Vital Signs Temp Pulse Pulse Pulse Pulse Pulse Resp 08/10/24 10:09 76 78 68 15 08/10/24 08:55 77 14 08/10/24 07:00 98.1 F 77 14 08/10/24 02:26 98.2 F 73 16 08/09/24 18:13 97.9 F 80 17 08/09/24 17:17 97.4 F L 88 18 08/09/24 14:18 73 18 08/09/24 13:18 76 18 08/09/24 13:15 97.6 F 82 18 BP BP BP BP BP Pulse Ox 08/10/24 10:09 160/84 143/85 157/83 08/10/24 08:55 08/10/24 07:00 136/74 92 L 08/10/24 02:26 124/72 96 08/09/24 18:13 152/80 94 L 08/09/24 17:17 137/76 95 08/09/24 14:18 183/95 98 08/09/24 13:18 179/83 99 08/09/24 13:15 180/98 96 Intake and Output 08/09/24 08/10/24 08/10/24 22:59 06:59 14:59 Other: # Voids 1 3 Weight 68.039 kg Results CBC & Chem 7: 08/09/24 13:22 08/09/24 13:22 Labs: Abnormal Lab Results - Last 24 Hours (Table) 08/09/24 08/09/24 08/09/24 Range/Units 13:22 13:22 13:22 D-Dimer 1.06 H (<0.60) mg/L FEU Potassium 3.4 L (3.5-5.1) mmol/L HDL Cholesterol 64.30 H (40.00-60.00) mg/dL Thrombosis Risk Factor Assmnt - Choose All That Apply Each Risk Factor Represents 2 Points: Age 61-74 years Thrombosis Risk Factor Assessment Total Risk Factor Score: 2 Thrombosis Risk Factor Assessment Level: Low Risk
--- NOTE | 2024-08-10 21:13 | P.DS ---
Providers Date of admission: 08/09/24 15:36 Expected date of discharge: 08/10/24 Attending physician: Jonathan Eckert Consults: 08/09/24 15:40 Consult Physician Urgent Consulting Provider: Shiraz Ball Consult Reason/Comments: chest pain Do you want consulting provider notified?: Yes Primary care physician: Miguel Schmidt [facility] Course: Chief Complaint: Chest pressure This is a pleasant 63-year-old patient who follows with Dr. Schmidt. Chronic stable medical conditions includes COPD, rheumatoid arthritis, kidney stones, and is a smoker. For few days patient been having lower chest pressure. Its present on and off. Not really related to activity. Sometimes accompanied for last 2 days by dizziness and lightheadedness. No perspiration. No radiation. Patient is consistently constantly congested with cough and clear sputum. Which is rather chronic. Being a smoker. Finally decided to come in for the same. Patient is otherwise fairly active. Denies any prior cardiac history August 10: Patient underwent echocardiogram. EF normal. Patient was cleared by cardiology to follow-up outpatient. Spoke to the patient's son at the bedside. Return to the ER if chest pain was to recur or persist. Discussed about smoking. Social history: . Smokes a pack a day for many years. Works at [email or web address] Physical examination: VITAL SIGNS: 98.1, 77, 14, 136 [place] 74, 92% room air GENERAL: BMI 27.4, sitting at edge of bed awake not in distress. Congested appearing. EYES: Pupils equal. Conjunctiva elie l. HEENT: External appearance of nose and ears normal, oral cavity grossly normal. NECK: JVD not raised; masses not palpable. HEART: First and second heart sounds are normal; no edema. LUNGS: Respiratory rate increased, decreased breath sounds. ABDOMEN: Soft, nontender, liver spleen not palpable, no masses palpable. PSYCH: Alert and oriented x3; mood and affect elie l. MUSCULOSKELETAL:No Clubbing/cyanosis;muscles-grossly intact NEUROLOGICAL: Cranial nerves grossly intact; no facial asymmetry, power and sensation grossly intact. LYMPHATICS: No lymph nodes palpable in the axilla and neck INVESTIGATIONS, reviewed in the clinical context: 2D echocardiogram: EF 50 to 60%. August 09, 2024: White count 7.4 hemoglobin 14.2 platelets 236 sodium 140 potassium 3.4 creatinine 0.83 Troponin I less than 0.012 x 3 LDL 107.5 Influenza type A, type B, RSV, COVID-19: Not detected EKG tracing personally reviewed by me-normal sinus rhythm. Some ST segment depression in inferolateral leads. Chest x-ray film personally reviewed by me-emphysema CT chest angio for PE: Negative for PE Assessment plan: -Anterior chest wall pain. Possible unstable angina. Cardiac risk factors include smoking, postmenopausal, essential hypertension, hyperlipidemia. Troponins negative. EKG with some ST segment depression in inferolateral leads. Telemetry. Seen by cardiology. Follow-up outpatient. -COPD in a current smoker Fluticasone Salmeterol Inhaler. DuoNeb prescription written -Chronic nicotine dependence cigarette smoker Patient counseled -Essential hypertension Zestril -Hyperlipidemia Crestor -Chronic allergic rhinitis Disposition: Home Past Medical History Past Medical History: COPD, Rheumatoid Arthritis (RA) Additional Past Medical History / Comment(s): hemorrhoids, KIDNEY STONES. cardiac myopathy??? History of Any Multi-Drug Resistant Organisms: None Reported Past Surgical History: Adenoidectomy, Tonsillectomy, Tubal Ligation Additional Past Surgical History / Comment(s): LT URETEROSCOPY WITH STENT PLACEMENT Past Anesthesia/Blood Transfusion Reactions: No Reported Reaction Past Psychological History: No Psychological Hx Reported Smoking Status: Current every day smoker Past Alcohol Use History: None Reported Past Drug Use History: None Reported Plan - Discharge Summary Discharge Rx Participant: No New Discharge Prescriptions: New Ipratropium-Albuterol Nebulize [Duoneb 0.5 mg-3 mg/3 ml Soln] 3 ml INHALATION TID PRN #90 ml PRN Reason: Wheezing Nitroglycerin Sl Tabs [Nitrostat] 0.4 mg SUBLINGUAL Q5M PRN #30 tab PRN Reason: Chest Pain Aspirin 81 mg PO DAILY tab Continue Albuterol Inhaler [Ventolin Hfa Inhaler] 1 puff INHALATION RT-Q6H PRN PRN Reason: Shortness Of Breath Fluticasone Propion/Salmeterol [Fluticasone-Salmeterol 500-50] 1 puff INHALATION RT-BID lisinopriL [Zestril] 30 mg PO DAILY Rosuvastatin [Crestor] 10 mg PO HS Discharge Medication List Albuterol Inhaler [Ventolin Hfa Inhaler] 1 puff INHALATION RT-Q6H PRN 11/21/20 [History] Fluticasone Propion/Salmeterol [Fluticasone-Salmeterol 500-50] 1 puff INHALATION RT-BID 11/21/20 [History] Rosuvastatin [Crestor] 10 mg PO HS 08/09/24 [History] lisinopriL [Zestril] 30 mg PO DAILY 08/09/24 [History] Aspirin 81 mg PO DAILY tab 08/10/24 [Rx] Ipratropium-Albuterol Nebulize [Duoneb 0.5 mg-3 mg/3 ml Soln] 3 ml INHALATION TID PRN #90 ml 08/10/24 [Rx] Nitroglycerin Sl Tabs [Nitrostat] 0.4 mg SUBLINGUAL Q5M PRN #30 tab 08/10/24 [Rx] Follow up Appointment(s)/Referral(s): Carlos A Shaikh DO [STAFF PHYSICIAN] - 1 Week Miguel Schmidt MD [Primary Care Provider] - 1-2 days Discharge Disposition: HOME SELF-CARE
[2024-08-11] MEDS ORDERED: lisinopriL 20 MG TAB PO SCH (09:00)
[2024-08-11] MEDS ORDERED: ASPIRIN 81 MG PO SCH (09:00)
== END 2024-08-10 14:05 | disposition home or self-care (01) ==
LOC: EC 13:01 → 6NMEDSUR 15:36
PROVIDERS: ADMIT Hospitalist; ATTEND Hospitalist
DX: R07.89 Other chest pain (principal); J44.9 Chronic obstructive pulmonary disease, unspecified; I10 Essential (primary) hypertension; E78.5 Hyperlipidemia, unspecified; J30.9 Allergic rhinitis, unspecified; F17.210 Nicotine dependence, cigarettes, uncomplicated; M06.9 Rheumatoid arthritis, unspecified; Z87.442 Personal history of urinary calculi; Z79.899 Other long term (current) drug therapy; Z79.82 Long term (current) use of aspirin
CPT/HCPCS: 96372; 99285; 36415; 94640 ×2; 93005; 93306; 85379; 83880; 80061; 80053; 83605; 83735; 84484; 85025; 85610; 85730; 87636; 71046; 71275; G0378 ×2; J1650; Q9967